=== PATIENT | male | born 1960 | race Caucasian/White ===

== ENCOUNTER → 2016-11-26 | Outpatient (CLI) | payer MEDICARE, OTHER ==
[~2016-11-26] MED LIST: /FENT50PA TD; /PANT40TA OR; /SUCR1TA PO; ACET65TA OR; AUGM875T27 PO; COLA100C2 PO; FERR325T PO; FISH1000 PO; LIDO5DIS TD; MAALSUS OR; MIRALEX PO; MS C30TA2 PO; MULT1TAB10 PO; MULTIVIT PO; NEUR100C PO; NEUR800T PO; OXYC10TA12 PO; OXYC20TA2 PO; OXYC30TA72 PO; OXYC30TA84 PO; OXYC5CAP4 PO; OXYCODONE PO; PAIN325T PO; PRIL40CA PO; ROXICODONE; SENN15TA2 OR; SENN15TA2 PO; TIZA2TAB PO; TIZA6CAP3 PO; TYL RE; TYLE325T5 PO; dulcolax OR; dulcolax PR; fergon OR; senekot OR
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
== END ==
LOC: M PAIN 13:00
PROVIDERS: ATTEND Anesthesiology
DX: M79.1 Myalgia (principal); M51.16 Intervertebral disc disorders with radiculopathy, lumbar region; M54.2 Cervicalgia; G60.8 Other hereditary and idiopathic neuropathies; Z87.828 Personal history of other (healed) physical injury and trauma; Z79.891 Long term (current) use of opiate analgesic; Z79.899 Other long term (current) drug therapy

== ENCOUNTER → 2017-01-28 | Outpatient (CLI) | payer MEDICARE, OTHER ==
[2017-01-28 16:49] LABS: ALBUMIN 4.2 GM/DL (3.2-5.2); ALBUMIN/GLOBULIN RATIO 1.35 (1.00-1.93); ALKALINE PHOSPHATASE 81 U/L (45-117); ALT/SGPT 29 U/L (12-78); ANION GAP 7 MEQ/L (8-16); AST/SGOT 28 U/L (15-37); BILIRUBIN,TOTAL 0.7 MG/DL (0.2-1.0); BLOOD UREA NITROGEN 17 MG/DL (7-18); CARBON DIOXIDE LEVEL 31 MEQ/L (21-32); CHLORIDE LEVEL 101 MEQ/L (98-107); CHOLESTEROL LEVEL 208 MG/DL (<200); CREATININE FOR GFR 0.87 MG/DL (0.70-1.30); FERRITIN 445 NG/ML (26-388); GLOMERULAR FILTRATION RATE > 60.0 (>56); GLUCOSE, FASTING 92 MG/DL (70-105); PERCENT SATURATION 36.7 % (19.7-37.4); POTASSIUM SERUM 4.6 MEQ/L (3.5-5.1); SODIUM LEVEL 139 MEQ/L (136-145); TOTAL IRON BINDING CAPACITY 343 UG/DL (250-450); TOTAL PROTEIN 7.3 GM/DL (6.4-8.2); TRIGLYCERIDES LEVEL 403 MG/DL (<150); URIC ACID 5.9 MG/DL (3.5-7.2)
[2017-01-28 16:56] LABS: MEAN CORPUSCULAR HEMOGLOBIN 31.9 pg (27.0-33.0); MEAN CORPUSCULAR HGB CONC 34.8 g/dl (32.0-36.5); MEAN CORPUSCULAR VOLUME 91.8 fl (80.0-96.0); RED CELL DISTRIBUTION WIDTH 12.3 % (11.5-14.5); WHITE BLOOD COUNT 5.7 K/mm3 (4.0-10.0)
== END ==
LOC: M WUC 14:08
PROVIDERS: ATTEND Family Medicine
DX: D50.8 Other iron deficiency anemias (principal); E78.2 Mixed hyperlipidemia; Z12.5 Encounter for screening for malignant neoplasm of prostate
CPT/HCPCS: 36415; 80053; 80061; 82728; 83550; 84550; 85027; G0103

== ENCOUNTER → 2017-06-10 | Outpatient (REF) ==
[~2017-06-10] MED LIST changes: -AUGM875T27 PO; +AUGM875T28 PO
--- NOTE | 2017-06-10 15:08 | REP ---
Lumbar spine three views: Comparison 05/18/2009. There is thoracic scoliosis convex right, possibly positional, not present previously. There is grade II compression deformities of the L2 vertebral body as an interval change. There is disc space narrowing and degenerative disc disease at every lumbar level. There are small anterior osteophytes at every lumbar level. The pedicles, facets and sacroiliac articulations are unremarkable. Impression: Scoliosis. Multilevel degenerative disc disease. Interim grade II compression deformity of the L2 vertebral body Signed by Rodolfo Bustillos MD 06/10/2017 02:59 P
== END ==
LOC: M SMT 13:27
PROVIDERS: ATTEND Internal Medicine
DX: Z02.9 Encounter for administrative examinations, unspecified (principal)

== ENCOUNTER → 2017-06-10 | Outpatient (REF) | LOC: M SMT 13:26 | PROVIDERS: ATTEND Internal Medicine | DX: Z53.9 Procedure and treatment not carried out, unspecified reason (principal) ==

== ENCOUNTER → 2017-10-27 | Outpatient (REF) | payer MEDICARE, OTHER ==
[2017-10-27 19:12] LABS: BASO % 0.4 % (0.0-1.0); EOS # 0.1 10^3/uL (0.0-0.50); EOS % 1.2 % (0.0-3.0); HEMATOCRIT 41.7 % (42.0-52.0); HEMOGLOBIN 14.2 g/dl (14.0-18.0); IMMATURE GRANULOCYTE % 0.4 % (0-0); LYMPH # 1.5 10^3/uL (1.5-4.5); LYMPH % 28.6 % (24.0-44.0); MEAN CORPUSCULAR HEMOGLOBIN 31.1 pg (27.0-33.0); MEAN CORPUSCULAR HGB CONC 34.1 g/dl (32.0-36.5); MEAN CORPUSCULAR VOLUME 91.4 fl (80.0-96.0); MONO # 0.3 10^3/uL (0.0-0.8); NEUTROPHILS # 3.3 10^3/uL (1.8-7.7); NEUTROPHILS % 63.4 % (36.0-66.0); PLATELET COUNT, AUTOMATED 223 10^3/uL (150-450); RED BLOOD COUNT 4.56 10^6/uL (4.30-6.10); RED CELL DISTRIBUTION WIDTH 12.4 % (11.5-14.5); WHITE BLOOD COUNT 5.2 10^3/uL (4.0-10.0)
[2017-10-27 19:22] LABS: APPEARANCE, URINE CLEAR (CLEAR); BACTERIA, URINE AUTO NEGATIVE (NEGATIVE); BILIRUBIN, URINE AUTO NEGATIVE (NEGATIVE); BLOOD, URINE BLOOD NEGATIVE (NEGATIVE); COLOR, URINE YELLOW (YELLOW); GLUCOSE, URINE (UA) AUTO NEGATIVE (NEGATIVE); KETONE, URINE AUTO NEGATIVE (NEGATIVE); LEUKOCYTE ESTERASE, URINE AUTO NEGATIVE (NEGATIVE); MUCUS, URINE SMALL (NEGATIVE); NITRITE, URINE AUTO NEGATIVE (NEGATIVE); PROTEIN, URINE AUTO NEGATIVE (NEGATIVE); RBC, URINE AUTO 0 /HPF (0-3); SPECIFIC GRAVITY URINE AUTO 1.024 (1.002-1.035); SQUAMOUS EPITHELIAL CELL UR AU 0 /HPF (0-6); UROBILINOGEN, URINE AUTO 0.2 mg/dL (0.0-2.0); WBC, URINE AUTO 0 /HPF (0-3)
[2017-10-27 20:05] LABS: ALBUMIN 4.4 GM/DL (3.2-5.2); ALBUMIN/GLOBULIN RATIO 1.38 (1.00-1.93); ALKALINE PHOSPHATASE 84 U/L (45-117); ALT/SGPT 30 U/L (12-78); AMYLASE 36 U/L (25-115); ANION GAP 6 MEQ/L (8-16); AST/SGOT 35 U/L (7-37); BILIRUBIN,TOTAL 0.5 MG/DL (0.2-1.0); BLOOD UREA NITROGEN 12 MG/DL (7-18); CALCIUM LEVEL 8.9 MG/DL (8.5-10.1); CARBON DIOXIDE LEVEL 31 MEQ/L (21-32); CHLORIDE LEVEL 104 MEQ/L (98-107); GLOMERULAR FILTRATION RATE > 60.0 (>56); GLUCOSE, FASTING 101 MG/DL (70-105); LIPASE 155 U/L (73-393); POTASSIUM SERUM 4.2 MEQ/L (3.5-5.1); SODIUM LEVEL 141 MEQ/L (136-145); TOTAL PROTEIN 7.6 GM/DL (6.4-8.2)
== END ==
LOC: M SFHCADAM 15:48
DX: R11.0 Nausea (principal); R10.826 Epigastric rebound abdominal tenderness
CPT/HCPCS: 82150

== ENCOUNTER → 2019-01-03 | Outpatient (CLI) | payer MEDICARE, BC, OTHER ==
[~2019-01-03] MED LIST changes: +TIZA6CAP PO; -TIZA6CAP3 PO
--- NOTE | 2019-01-03 18:50 | REP ---
RIGHT HAND, FOUR VIEWS: HISTORY: Pain. There is a nondisplaced fracture of the head of the 5th metacarpal. There is no dislocation. The joint spaces are normal in appearance. IMPRESSION: Nondisplaced fracture of the 5th metacarpal. Electronically Signed by Francisco Brennan MD 01/03/2019 06:51 P
== END ==
LOC: M WUC 17:16
PROVIDERS: ATTEND Physician Assistant
DX: S62.398A Other fracture of other metacarpal bone, initial encounter for closed fracture (principal); Y93.9 Activity, unspecified; Y99.9 Unspecified external cause status; Y92.9 Unspecified place or not applicable; X58.XXXA Exposure to other specified factors, initial encounter

== ENCOUNTER → 2019-02-24 | Outpatient (REF) | payer MEDICARE, OTHER ==
[~2019-02-24] MED LIST changes: -/FENT50PA TD; -/PANT40TA OR; -/SUCR1TA PO; +FENT1DIS15 TD; +PROT1TAB2 OR; +SUCR1TAB56 PO
[2019-02-24 19:03] LABS: HEMATOCRIT 42.1 % (42.0-52.0); HEMOGLOBIN 14.3 g/dl (13.5-17.5); MEAN CORPUSCULAR HEMOGLOBIN 32.4 pg (27.0-33.0); MEAN CORPUSCULAR VOLUME 95.5 fl (80.0-96.0); PLATELET COUNT, AUTOMATED 175 10^3/uL (150-450); RED BLOOD COUNT 4.41 10^6/uL (4.30-6.10); WHITE BLOOD COUNT 4.1 10^3/uL (4.0-10.0)
[2019-02-24 19:13] LABS: ALT/SGPT 36 U/L (12-78); BLOOD UREA NITROGEN 9 MG/DL (7-18); CALCIUM LEVEL 9.1 MG/DL (8.5-10.1); CARBON DIOXIDE LEVEL 29 MEQ/L (21-32); CHLORIDE LEVEL 102 MEQ/L (98-107); CHOLESTEROL LEVEL 211 MG/DL (<200); CHOLESTEROL RISK RATIO 3.102 (<5); CREATININE FOR GFR 0.97 MG/DL (0.70-1.30); FERRITIN 441 NG/ML (26-388); GLOMERULAR FILTRATION RATE > 60.0 (>56); GLUCOSE, FASTING 95 MG/DL (70-100); HDL CHOLESTEROL 68 MG/DL (>40); IRON (FE) 203 UG/DL (65-175); LDL CHOLESTEROL 93 MG/DL (<100); NON-HDL-C 143 MG/DL; PERCENT SATURATION 57.8 % (19.7-50.0); POTASSIUM SERUM 4.2 MEQ/L (3.5-5.1); SODIUM LEVEL 137 MEQ/L (136-145); TOTAL IRON BINDING CAPACITY 351 UG/DL (250-450); TOTAL PROTEIN 7.8 GM/DL (6.4-8.2); TRIGLYCERIDES LEVEL 248 MG/DL (<150); URIC ACID 5.2 MG/DL (3.5-7.2)
== END ==
LOC: M SFHCADAM 14:35
PROVIDERS: ATTEND Family Medicine
DX: E78.2 Mixed hyperlipidemia (principal); G90.529 Complex regional pain syndrome I of unspecified lower limb; M1A.0710 Idiopathic chronic gout, right ankle and foot, without tophus (tophi); D50.8 Other iron deficiency anemias; Z12.5 Encounter for screening for malignant neoplasm of prostate
CPT/HCPCS: 80053; 80061; 82728; 83550; 84550; 85027; 85046; G0103; G0463

== ENCOUNTER → 2019-03-03 | Outpatient (CLI) | payer MEDICARE, BC, OTHER ==
--- NOTE | 2019-03-03 11:15 | REP ---
NOMINAL AORTIC SONOGRAPHY: HISTORY: Aortic atherosclerosis. FINDINGS: A normal caliber abdominal aorta is noted. Aortic dimensions are 1.9 x 1.9 cm proximally at the level of the diaphragmatic hiatus. AP by transverse dimensions of the distal aorta are 1.9 x 1.8 cm. The right and left common iliac arteries measure 0.8 cm in AP dimension bilaterally. No periaortic disease is seen. IMPRESSION: Normal abdominal aortic sonography. Electronically Signed by Payam Joshua MD 03/03/2019 01:07 P
== END ==
LOC: M RAD 07:28
PROVIDERS: ATTEND Family Medicine
DX: Z86.79 Personal history of other diseases of the circulatory system (principal)

== ENCOUNTER → 2019-05-23 | Outpatient (REF) | payer MEDICARE, OTHER ==
[2019-05-23 17:59] LABS: BASO % 0.5 % (0.0-1.0); EOS # 0.1 10^3/uL (0.0-0.50); EOS % 2.2 % (0.0-3.0); HEMATOCRIT 40.3 % (42.0-52.0); HEMOGLOBIN 13.9 g/dl (13.5-17.5); LYMPH # 1.2 10^3/uL (1.5-4.5); LYMPH % 32.1 % (24.0-44.0); MEAN CORPUSCULAR HEMOGLOBIN 33.3 pg (27.0-33.0); MEAN CORPUSCULAR HGB CONC 34.5 g/dl (32.0-36.5); MEAN CORPUSCULAR VOLUME 96.4 fl (80.0-96.0); MONO # 0.3 10^3/uL (0.0-0.8); MONO % 7.3 % (0.0-5.0); NEUTROPHILS # 2.1 10^3/uL (1.8-7.7); NEUTROPHILS % 57.6 % (36.0-66.0); PLATELET COUNT, AUTOMATED 178 10^3/uL (150-450); RED BLOOD COUNT 4.18 10^6/uL (4.30-6.10); WHITE BLOOD COUNT 3.7 10^3/uL (4.0-10.0)
[2019-05-23 18:00] LABS: C REACTIVE PROTEIN QUANTITATIV 0.3 MG/DL (0.00-0.30); URIC ACID 5.2 MG/DL (3.5-7.2)
[2019-05-23 18:34] LABS: ERYTHROCYTE SEDIMENTATION RATE 9 mm/hr (0-20)
[2019-05-26 00:06] LABS: ANTI DOUBLE STRAND-DNA AB 1 IU/mL (0-9); ANTINUCLEAR ANTIBODIES DIRECT Positive (Negative); Lyme Disease IgG/IgM Antibodie <0.91 ISR (0.00-0.90); Lyme Disease IgM Ab Quantitati <0.80 index (0.00-0.79); RNP ANTIBODIES 1.8 AI (0.0-0.9); SJOGREN'S ANTI SS-A <0.2 AI (0.0-0.9); SJOGREN'S ANTI SS-B <0.2 AI (0.0-0.9); SMITH ANTIBODIES <0.2 AI (0.0-0.9)
== END ==
LOC: M LABDRAW1 17:06
PROVIDERS: ATTEND Physician Assistant Surgical
DX: S62.366 Nondisplaced fracture of neck of fifth metacarpal bone, right hand (principal)

== ENCOUNTER → 2020-05-10 | Outpatient (REF) | payer MEDICARE, OTHER ==
[~2020-05-10] MED LIST changes: +OXYC30TA PO; -OXYC30TA84 PO
[2020-05-10 19:41] LABS: HEMOGLOBIN 13.5 g/dl (13.5-17.5); MEAN CORPUSCULAR HEMOGLOBIN 32.1 pg (27.0-33.0); MEAN CORPUSCULAR HGB CONC 33.8 g/dl (32.0-36.5); MEAN CORPUSCULAR VOLUME 95.2 fl (80.0-96.0); PLATELET COUNT, AUTOMATED 179 10^3/uL (150-450); WHITE BLOOD COUNT 4.3 10^3/uL (4.0-10.0)
[2020-05-10 20:01] LABS: ALBUMIN 3.8 GM/DL (3.2-5.2); ALT/SGPT 23 U/L (12-78); BILIRUBIN,TOTAL 0.4 MG/DL (0.2-1.0); BLOOD UREA NITROGEN 10 MG/DL (7-18); CALCIUM LEVEL 8.6 MG/DL (8.5-10.1); CARBON DIOXIDE LEVEL 29 MEQ/L (21-32); CHLORIDE LEVEL 103 MEQ/L (98-107); CHOLESTEROL LEVEL 189 MG/DL (<200); CHOLESTEROL RISK RATIO 3.258 (<5); CREATININE FOR GFR 0.78 MG/DL (0.70-1.30); FERRITIN 254 NG/ML (26-388); GLOMERULAR FILTRATION RATE > 60.0 (>56); GLUCOSE, FASTING 87 MG/DL (70-100); HDL CHOLESTEROL 58 MG/DL (>40); IRON (FE) 181 UG/DL (65-175); LDL CHOLESTEROL 65 MG/DL (<100); LIPASE 94 U/L (73-393); NON-HDL-C 131 MG/DL; PERCENT SATURATION 56.4 % (19.7-50.0); POTASSIUM SERUM 4.5 MEQ/L (3.5-5.1); SODIUM LEVEL 140 MEQ/L (136-145); TOTAL IRON BINDING CAPACITY 321 UG/DL (250-450); TOTAL PROTEIN 7.4 GM/DL (6.4-8.2); TRIGLYCERIDES LEVEL 328 MG/DL (<150)
== END ==
LOC: M SFHCADAM 15:33
PROVIDERS: ATTEND Family Medicine
DX: R10.32 Left lower quadrant pain (principal); E83.10 Disorder of iron metabolism, unspecified; E78.2 Mixed hyperlipidemia; Z12.5 Encounter for screening for malignant neoplasm of prostate
CPT/HCPCS: 80053; 80061; 81256; 82728; 83550; 83690; 85027; 85046; G0103

== ENCOUNTER → 2020-06-08 | Outpatient (CLI) | payer MEDICARE, BC, OTHER ==
--- NOTE | 2020-07-20 10:16 | REP ---
CT ABDOMEN AND PELVIS WITHOUT IV OR ORAL CONTRAST HISTORY: Left lower quadrant abdominal pain. COMPARISON: CT study from 01/21/2015. FINDINGS: Digital preliminary anesthesiology physician radiograph shows a normal bowel gas pattern. There are osteoarthritic changes in the hips bilaterally and there is old posttraumatic deformity apparent in the right ischium and superior pubic ramus. These findings are unchanged from the [address] images, there is some linear fibrosis in the left lower lobe. The lung bases are otherwise essentially clear. There is no evidence of pleural effusion or upper abdominal ascites. No focal hepatic or splenic lesion is seen. There is a small accessory splenule near the pancreatic tail. No pancreatic abnormalities observed. The gallbladder is unremarkable. Normal adrenal glands are visible bilaterally. There is a cyst in the lower pole of the left kidney measuring 3.1 cm in greatest diameter. No retroperitoneal mass or adenopathy is observed. There is a subtle increase in the density of the small bowel mesenteric fat without evidence of adenopathy consistent with mesenteric panniculitis. This is essentially unchanged from the prior study. The appendix is surgically absent. No evidence of large or small bowel obstruction. Vascular calcification is observed. Seminal vesicles, prostate, and urinary bladder are unremarkable. No abdominal wall defect is seen. IMPRESSION: No acute abnormality noted. Edema versus fibrosis in the small bowel mesentery, question mesenteric panniculitis pattern, essentially unchanged from 2015. Small cyst lower pole left kidney 3.1 cm. No acute abnormality. MTDD
== END ==
LOC: M RAD 16:12
PROVIDERS: ATTEND Family Medicine
DX: N28.1 Cyst of kidney, acquired (principal); R10.32 Left lower quadrant pain

== ENCOUNTER → 2021-08-15 | Outpatient (REF) | payer MEDICARE, OTHER ==
[~2021-08-15] MED LIST changes: +ALLO100T; +FAMO40TA3; +GABA-1171; +LASI20TA3 PO; +OMEP-221; +VENTAER INH
[2021-08-15 16:59] LABS: HEMATOCRIT 47.7 % (42.0-52.0); HEMOGLOBIN 16.3 g/dl (13.5-17.5); MEAN CORPUSCULAR HEMOGLOBIN 33.7 pg (27.0-33.0); MEAN CORPUSCULAR HGB CONC 34.2 g/dl (32.0-36.5); MEAN CORPUSCULAR VOLUME 98.6 fl (80.0-96.0); PLATELET COUNT, AUTOMATED 139 10^3/uL (150-450); RED BLOOD COUNT 4.84 10^6/uL (4.30-6.10); WHITE BLOOD COUNT 4.2 10^3/uL (4.0-10.0)
[2021-08-15 17:45] LABS: ALBUMIN 3.7 GM/DL (3.2-5.2); ALT/SGPT 48 U/L (12-78); BILIRUBIN,TOTAL 1.2 MG/DL (0.2-1.0); BLOOD UREA NITROGEN 9 MG/DL (7-18); CALCIUM LEVEL 9.1 MG/DL (8.8-10.2); CARBON DIOXIDE LEVEL 32 MEQ/L (21-32); CHLORIDE LEVEL 105 MEQ/L (98-107); CHOLESTEROL LEVEL 174 MG/DL (<200); CHOLESTEROL RISK RATIO 2.416 (<5); CREATININE FOR GFR 0.76 MG/DL (0.70-1.30); FREE T4 0.85 NG/DL (0.76-1.46); GLOMERULAR FILTRATION RATE > 60.0 (>49); GLUCOSE, FASTING 114 MG/DL (70-100); HDL CHOLESTEROL 72 MG/DL (>40); LDL CHOLESTEROL 87 MG/DL (<100); NON-HDL-C 102 MG/DL; POTASSIUM SERUM 4.6 MEQ/L (3.5-5.1); SODIUM LEVEL 139 MEQ/L (136-145); TOTAL PROTEIN 7.1 GM/DL (6.4-8.2); TRIGLYCERIDES LEVEL 76 MG/DL (<150)
[2021-08-15 19:47] LABS: HEMOGLOBIN A1c 4.7 %
== END ==
LOC: M SFHCADAM 13:28
PROVIDERS: ATTEND Family Medicine
DX: K43.9 Ventral hernia without obstruction or gangrene (principal); G90.529 Complex regional pain syndrome I of unspecified lower limb; E78.2 Mixed hyperlipidemia; E74.9 Disorder of carbohydrate metabolism, unspecified; I70.0 Atherosclerosis of aorta; Z12.5 Encounter for screening for malignant neoplasm of prostate; Z79.899 Other long term (current) drug therapy; Z23 Encounter for immunization
CPT/HCPCS: 80053; 80061; 83036; 84439; 84443; 85027; 90682; G0008; G0103; G0463

== ENCOUNTER → 2022-02-12 | Outpatient (CLI) | payer MEDICARE, OTHER ==
[~2022-02-12] MED LIST changes: -OMEP-221; +OMEP40CA5
[2022-02-12 16:32] LABS: HEMATOCRIT 48.8 % (42.0-52.0); HEMOGLOBIN 16.9 g/dl (13.5-17.5); MEAN CORPUSCULAR HEMOGLOBIN 33.9 pg (27.0-33.0); MEAN CORPUSCULAR HGB CONC 34.6 g/dl (32.0-36.5); PLATELET COUNT, AUTOMATED 127 10^3/uL (150-450); RED BLOOD COUNT 4.98 10^6/uL (4.30-6.10); WHITE BLOOD COUNT 4.5 10^3/uL (4.0-10.0)
[2022-02-12 17:12] LABS: ALT/SGPT 50 U/L (12-78); BILIRUBIN,TOTAL 0.8 MG/DL (0.2-1.0); BLOOD UREA NITROGEN 10 MG/DL (7-18); CALCIUM LEVEL 9.2 MG/DL (8.8-10.2); CARBON DIOXIDE LEVEL 35 MEQ/L (21-32); CHLORIDE LEVEL 99 MEQ/L (98-107); CREATININE FOR GFR 0.82 MG/DL (0.70-1.30); FERRITIN 128 NG/ML (26-388); FOLATE 8.2 NG/ML (>5.4); FREE T4 0.87 NG/DL (0.76-1.46); GLOMERULAR FILTRATION RATE > 60.0 (>49); GLUCOSE, FASTING 125 MG/DL (70-100); IRON (FE) 87 UG/DL (65-175); MAGNESIUM LEVEL 2.5 MG/DL (1.8-2.4); NT-PRO BNP 22 PG/ML (<125); PERCENT SATURATION 20.6 % (19.7-50.0); POTASSIUM SERUM 3.9 MEQ/L (3.5-5.1); SODIUM LEVEL 136 MEQ/L (136-145); TOTAL IRON BINDING CAPACITY 423 UG/DL (250-450); TOTAL PROTEIN 7.9 GM/DL (6.4-8.2)
[2022-02-15 00:11] LABS: CYCLIC CITRULLINATED PEPTIDE 3 units (0-19); TRANSFERRIN 335 mg/dL (177-329)
[2022-02-18 18:04] LABS: VITAMIN B12 LEVEL 417 PG/ML (247-911)
== END ==
LOC: M RAD 15:48
PROVIDERS: ATTEND Family Medicine
DX: N28.1 Cyst of kidney, acquired (principal); S32.028A Other fracture of second lumbar vertebra, initial encounter for closed fracture; G57.93 Unspecified mononeuropathy of bilateral lower limbs; R76.8 Other specified abnormal immunological findings in serum; I27.20 Pulmonary hypertension, unspecified; R18.8 Other ascites; R14.0 Abdominal distension (gaseous); Z14.8 Genetic carrier of other disease; X58.XXXA Exposure to other specified factors, initial encounter; Y92.9 Unspecified place or not applicable; Y99.9 Unspecified external cause status

== ENCOUNTER → 2022-02-12 | Outpatient (REF) | payer MEDICARE, OTHER | LOC: M SFHCADAM 14:57 | PROVIDERS: ATTEND Family Medicine | DX: I27.20 Pulmonary hypertension, unspecified (principal); G57.93 Unspecified mononeuropathy of bilateral lower limbs; R76.8 Other specified abnormal immunological findings in serum; R18.8 Other ascites; Z14.8 Genetic carrier of other disease ==

== ENCOUNTER → 2022-04-16 | Outpatient (CLI) | payer MEDICARE, BC, OTHER ==
[~2022-04-16] MED LIST changes: +ISOVUE-370 76% 100ML VIAL As Ordered ONE
== END ==
LOC: M RAD 15:13
PROVIDERS: ATTEND Internal Medicine Pulmonary Disease
DX: R06.00 Dyspnea, unspecified (principal)
CPT/HCPCS: 71275; Q9967

== ENCOUNTER → 2022-05-01 | Outpatient (CLI) | payer MEDICARE, BC, OTHER ==
[~2022-05-01] MED LIST changes: -ISOVUE-370 76% 100ML VIAL As Ordered ONE
== END ==
LOC: M SLEEP HO 13:33
PROVIDERS: ATTEND Internal Medicine Pulmonary Disease
DX: R06.83 Snoring (principal); G47.9 Sleep disorder, unspecified

== ENCOUNTER → 2022-05-08 | Outpatient (CLI) | payer MEDICARE, BC, OTHER ==
[2022-05-08 14:05] LABS: BASO % 0.4 % (0.0-1.0); EOS % 0.6 % (0.0-3.0); HEMATOCRIT 46.6 % (42.0-52.0); HEMOGLOBIN 16.3 g/dl (13.5-17.5); LYMPH # 0.9 10^3/uL (1.5-5.0); LYMPH % 17.8 % (24.0-44.0); MEAN CORPUSCULAR HEMOGLOBIN 32.9 pg (27.0-33.0); MEAN CORPUSCULAR VOLUME 94.1 fl (80.0-96.0); MONO # 0.6 10^3/uL (0.0-0.8); MONO % 11.6 % (2.0-8.0); NEUTROPHILS # 3.4 10^3/uL (1.5-8.5); NEUTROPHILS % 69.4 % (36.0-66.0); PLATELET COUNT, AUTOMATED 149 10^3/uL (150-450); RED BLOOD COUNT 4.95 10^6/uL (4.30-6.10); WHITE BLOOD COUNT 4.9 10^3/uL (4.0-10.0)
[2022-05-08 14:28] LABS: ERYTHROCYTE SEDIMENTATION RATE 6 mm/hr (0-20)
[2022-05-08 14:31] LABS: ALBUMIN 3.9 GM/DL (3.2-5.2); ALT/SGPT 36 U/L (12-78); BILIRUBIN,TOTAL 1.8 MG/DL (0.2-1.0); BLOOD UREA NITROGEN 13 MG/DL (7-18); CALCIUM LEVEL 9.4 MG/DL (8.8-10.2); CARBON DIOXIDE LEVEL 30 MEQ/L (21-32); CHLORIDE LEVEL 100 MEQ/L (98-107); CREATININE FOR GFR 0.88 MG/DL (0.70-1.30); GLOMERULAR FILTRATION RATE > 60.0 (>49); GLUCOSE, FASTING 105 MG/DL (70-100); LIPASE 93 U/L (73-393); POTASSIUM SERUM 4.4 MEQ/L (3.5-5.1); SODIUM LEVEL 135 MEQ/L (136-145); TOTAL PROTEIN 7.8 GM/DL (6.4-8.2)
== END ==
LOC: M PLALAB 12:47
PROVIDERS: ATTEND Physician Assistant
DX: R61 Generalized hyperhidrosis (principal); R10.9 Unspecified abdominal pain; R19.7 Diarrhea, unspecified; R53.1 Weakness

== ENCOUNTER → 2022-07-07 | Outpatient (CLI) | payer MEDICARE, BC, OTHER ==
[2022-07-07 19:56] LABS: BASO % 0.6 % (0.0-1.0); EOS # 0.1 10^3/uL (0.0-0.5); EOS % 2.8 % (0.0-3.0); HEMATOCRIT 35.8 % (42.0-52.0); HEMOGLOBIN 12.1 g/dl (13.5-17.5); LYMPH # 1.1 10^3/uL (1.5-5.0); LYMPH % 30.5 % (24.0-44.0); MEAN CORPUSCULAR HEMOGLOBIN 34.3 pg (27.0-33.0); MEAN CORPUSCULAR HGB CONC 33.8 g/dl (32.0-36.5); MEAN CORPUSCULAR VOLUME 101.4 fl (80.0-96.0); MONO # 0.6 10^3/uL (0.0-0.8); MONO % 15.2 % (2.0-8.0); NEUTROPHILS # 1.8 10^3/uL (1.5-8.5); NEUTROPHILS % 50.6 % (36.0-66.0); PLATELET COUNT, AUTOMATED 179 10^3/uL (150-450); RED BLOOD COUNT 3.53 10^6/uL (4.30-6.10); WHITE BLOOD COUNT 3.6 10^3/uL (4.0-10.0)
[2022-07-07 20:56] LABS: ERYTHROCYTE SEDIMENTATION RATE 28 mm/hr (0-20)
== END ==
LOC: M WUC 14:51
PROVIDERS: ATTEND Family Medicine
DX: M1A.0710 Idiopathic chronic gout, right ankle and foot, without tophus (tophi) (principal)

== ENCOUNTER → 2022-11-07 | Outpatient (CLI) | payer MEDICARE, BC, OTHER ==
[2022-11-07 10:25] LABS: HEMATOCRIT 40.5 % (42.0-52.0); HEMOGLOBIN 13.5 g/dl (13.5-17.5); MEAN CORPUSCULAR HEMOGLOBIN 34.4 pg (27.0-33.0); MEAN CORPUSCULAR HGB CONC 33.3 g/dl (32.0-36.5); MEAN CORPUSCULAR VOLUME 103.3 fl (80.0-96.0); PLATELET COUNT, AUTOMATED 125 10^3/uL (150-450); RED BLOOD COUNT 3.92 10^6/uL (4.30-6.10); WHITE BLOOD COUNT 4.4 10^3/uL (4.0-10.0)
[2022-11-07 10:43] LABS: HEMOGLOBIN A1c 4.4 % (4.0-6.0)
[2022-11-07 10:51] LABS: ALBUMIN 3.3 G/DL (3.2-5.2); ALKALINE PHOSPHATASE 97 U/L (46-116); ALT/SGPT 37 U/L (7.0-40); AST/SGOT 80 U/L (<34); BILIRUBIN,TOTAL 0.6 MG/DL (0.3-1.2); BLOOD UREA NITROGEN 12 MG/DL (9-23); CALCIUM LEVEL 8.6 MG/DL (8.3-10.6); CARBON DIOXIDE LEVEL 29 MMOL/L (20-31); CHLORIDE LEVEL 100 MMOL/L (98-107); CHOLESTEROL LEVEL 145 MG/DL (<200); CHOLESTEROL RISK RATIO 2.77 (<5); CREATININE FOR GFR 0.62 MG/DL (0.70-1.30); GLOMERULAR FILTRATION RATE > 60.0 (>49); GLUCOSE, FASTING 81 MG/DL (74-106); HDL CHOLESTEROL 52.3 MG/DL (>40); IRON (FE) 61 UG/DL (65-175); LDL CHOLESTEROL 74.5 MG/DL (<100); NON-HDL-C 93 MG/DL; PERCENT SATURATION 18.8 % (19.7-50.0); POTASSIUM SERUM 3.7 MMOL/L (3.5-5.1); SODIUM LEVEL 138 MMOL/L (136-145); TOTAL IRON BINDING CAPACITY 325 UG/DL (250-425); TOTAL PROTEIN 7.1 G/DL (5.7-8.2); TRIGLYCERIDES LEVEL 91 MG/DL (<150); VITAMIN B12 LEVEL 405 PG/ML (211-911)
[2022-11-07 10:52] LABS: FERRITIN 131.4 NG/ML (10.5-307.3); FREE T4 0.99 NG/DL (0.89-1.76); THYROID STIMULATING HORMONE 3.605 uIU/ML (0.55-4.78)
[2022-11-08 11:08] LABS: TESTOSTERONE FREE (DIRECT) 1.9 pg/mL (6.6-18.1)
== END ==
LOC: M WUC 08:36
PROVIDERS: ATTEND Family Medicine
DX: R53.83 Other fatigue (principal); D64.9 Anemia, unspecified; E78.2 Mixed hyperlipidemia; Z12.5 Encounter for screening for malignant neoplasm of prostate
CPT/HCPCS: 36415; 80053; 80061; 82607; 82728; 83036; 83550; 84402; 84403; 84439; 84443; 85027; 85046; G0103

== ENCOUNTER → 2023-02-03 | Outpatient (CLI) | payer MEDICARE, BC, OTHER ==
[2023-02-03 16:19] LABS: PLATELET COUNT, AUTOMATED 109 10^3/uL (150-450)
[2023-02-03 16:30] LABS: INR 1.09; PROTHROMBIN TIME 14.3 SECONDS (12.5-14.5)
[2023-02-03 16:31] LABS: PARTIAL THROMBOPLASTIN TIME 26.5 SECONDS (24.8-34.2)
[2023-02-03 16:41] LABS: ALBUMIN 3.5 G/DL (3.2-5.2); ALKALINE PHOSPHATASE 125 U/L (46-116); ALT/SGPT 31 U/L (7.0-40); AST/SGOT 125 U/L (<34); BILIRUBIN,DIRECT 0.5 MG/DL (<0.4); BILIRUBIN,TOTAL 0.9 MG/DL (0.3-1.2); BLOOD UREA NITROGEN 9 MG/DL (9-23); CALCIUM LEVEL 8.3 MG/DL (8.3-10.6); CARBON DIOXIDE LEVEL 31 MMOL/L (20-31); CHLORIDE LEVEL 102 MMOL/L (98-107); CREATININE FOR GFR 0.58 MG/DL (0.70-1.30); GLOMERULAR FILTRATION RATE > 60.0 (>49); GLUCOSE, FASTING 83 MG/DL (74-106); IRON (FE) 128 UG/DL (65-175); PERCENT SATURATION 43.2 % (19.7-50.0); POTASSIUM SERUM 3.7 MMOL/L (3.5-5.1); SODIUM LEVEL 139 MMOL/L (136-145); TOTAL IRON BINDING CAPACITY 296 UG/DL (250-425); TOTAL PROTEIN 7.1 G/DL (5.7-8.2)
[2023-02-03 17:01] LABS: HEPATITIS B SURFACE ANTIGEN NEGATIVE (NEGATIVE)
== END ==
LOC: M WUC 12:56
PROVIDERS: ATTEND Internal Medicine Gastroenterology
DX: K70.9 Alcoholic liver disease, unspecified (principal); R10.84 Generalized abdominal pain; R14.0 Abdominal distension (gaseous)

== ENCOUNTER → 2023-02-04 | Outpatient (REF) | payer MEDICARE, OTHER | LOC: M SFHCADAM 15:34 | PROVIDERS: ATTEND Family Medicine | DX: E34.9 Endocrine disorder, unspecified (principal); Z79.891 Long term (current) use of opiate analgesic; Z79.899 Other long term (current) drug therapy ==

== ENCOUNTER 2023-03-15 11:00 | Inpatient (IN) | payer MEDICARE, BC, OTHER ==
[~2023-03-15] VITALS: Ht 177.8 cm; Wt 76.9 kg
[~2023-03-15 11:00] MED LIST changes: -ALLO100T; +ALLO100T PO; -FAMO40TA3; +FAMO40TA3 PO; +FURO20TA2 PO; -GABA-1171; +GABA-1171 PO; -OMEP40CA5; +OMEP40CA5 PO; +TEST200I14 IM; +TEST30SO3
[2023-03-15] MEDS ORDERED: fentaNYL 100 MCG/2 ML INJECTION IV ONE (13:15)
[2023-03-15 13:40] LABS: HEMATOCRIT 40.7 % (42.0-52.0); HEMOGLOBIN 13.7 g/dl (13.5-17.5); MEAN CORPUSCULAR HEMOGLOBIN 33.3 pg (27.0-33.0); MEAN CORPUSCULAR HGB CONC 33.7 g/dl (32.0-36.5); MEAN CORPUSCULAR VOLUME 98.8 fl (80.0-96.0); PLATELET COUNT, AUTOMATED 175 10^3/uL (150-450); RED BLOOD COUNT 4.12 10^6/uL (4.30-6.10); WHITE BLOOD COUNT 6.1 10^3/uL (4.0-10.0)
[2023-03-15 14:09] LABS: BLOOD UREA NITROGEN 7 MG/DL (9-23); CALCIUM LEVEL 8.2 MG/DL (8.3-10.6); CARBON DIOXIDE LEVEL 33 MMOL/L (20-31); CHLORIDE LEVEL 103 MMOL/L (98-107); CREATININE FOR GFR 0.88 MG/DL (0.70-1.30); GLOMERULAR FILTRATION RATE > 60.0 (>49); GLUCOSE, FASTING 109 MG/DL (74-106); POTASSIUM SERUM 3.3 MMOL/L (3.5-5.1); SODIUM LEVEL 140 MMOL/L (136-145)
[2023-03-15] MEDS ORDERED: MORPHINE 2 MG/ML 1ML VIAL IV ONE (14:40)
[2023-03-15] MEDS ORDERED: ACETAMINOPHEN TAB 650MG DOSE (2X325MG) PO PRN (17:30)
[2023-03-15] MEDS ORDERED: POTASSIUM CHLORIDE 10MEQ SR TABLET PO ONE (17:30)
[2023-03-15] MEDS ORDERED: ALBUTEROL 90 MCG/ACT 8GM HFA INHALER INH PRN (17:30)
[2023-03-15] MEDS ORDERED: oxyCODONE 5MG TAB PO PRN (17:30)
[2023-03-15] MEDS ORDERED: LORazepam 2 MG TAB PO PRN (17:30)
[2023-03-15] MEDS ORDERED: LORazepam 2 MG/ML 1ML VIAL IV STA (17:47)
[2023-03-15] MEDS ORDERED: HOME MED LIST COMPLETE! XX SCH (17:50)
[2023-03-15] MEDS ORDERED: TEST30SO3 TOP (17:50)
[2023-03-15 18:17] LABS: RSV AMPLIFICATION NEGATIVE (NEGATIVE)
[2023-03-15] MEDS: MORPHINE 4 MG/ML 1ML VIAL IV PRN (19:27)
[2023-03-15] MEDS: GABAPENTIN 100 MG CAP PO SCH (20:28)
[2023-03-15] MEDS: THIAMINE 100 MG TAB PO SCH (20:30)
[2023-03-15] MEDS: FOLIC ACID 1MG TAB PO SCH (20:30)
[2023-03-15] MEDS: NS 1,000 ML IV SCH (20:31)
[2023-03-15] MEDS ORDERED: oxyCODONE 15MG CR TAB PO SCH (21:00)
[2023-03-15 21:30] VITALS: BP 142/80
[2023-03-15 22:00] VITALS: BP 152/78
[2023-03-15] MEDS: oxyCODONE 15MG CR TAB PO SCH (22:40)
[2023-03-15] MEDS: LIDOCAINE 5% (LIDODERM) PATCH TD SCH (22:42)
[2023-03-16] MEDS: MORPHINE 4 MG/ML 1ML VIAL IV PRN (00:54)
[2023-03-16] MEDS: oxyCODONE 5MG TAB PO PRN ×3 (02:49→23:18)
[2023-03-16] MEDS: HYDROMORPHONE HCL 0.5 MG/ 0.5 ML SYRINGE IV PRN ×7 (03:57→22:11)
[2023-03-16 05:16] VITALS: BP 133/71
[2023-03-16 06:09] LABS: HEMATOCRIT 38.2 % (42.0-52.0); HEMOGLOBIN 12.7 g/dl (13.5-17.5); MEAN CORPUSCULAR HEMOGLOBIN 33.3 pg (27.0-33.0); MEAN CORPUSCULAR HGB CONC 33.2 g/dl (32.0-36.5); MEAN CORPUSCULAR VOLUME 100.3 fl (80.0-96.0); PLATELET COUNT, AUTOMATED 163 10^3/uL (150-450); RED BLOOD COUNT 3.81 10^6/uL (4.30-6.10); WHITE BLOOD COUNT 5.7 10^3/uL (4.0-10.0)
[2023-03-16] MEDS: NS 1,000 ML IV SCH (06:33)
[2023-03-16 06:36] VITALS: BP 133/77
[2023-03-16 06:43] LABS: ALBUMIN 2.7 G/DL (3.2-5.2); ALKALINE PHOSPHATASE 154 U/L (46-116); ALT/SGPT 21 U/L (7.0-40); AST/SGOT 41 U/L (<34); BILIRUBIN,TOTAL 1.4 MG/DL (0.3-1.2); BLOOD UREA NITROGEN 9 MG/DL (9-23); CARBON DIOXIDE LEVEL 31 MMOL/L (20-31); CHLORIDE LEVEL 102 MMOL/L (98-107); CREATININE FOR GFR 0.85 MG/DL (0.70-1.30); GLOMERULAR FILTRATION RATE > 60.0 (>49); GLUCOSE, FASTING 82 MG/DL (74-106); MAGNESIUM LEVEL 1.6 MG/DL (1.8-2.4); POTASSIUM SERUM 3.3 MMOL/L (3.5-5.1); SODIUM LEVEL 138 MMOL/L (136-145); TOTAL PROTEIN 6.2 G/DL (5.7-8.2)
[2023-03-16] MEDS ORDERED: OXYC30TA72 PO (07:50)
[2023-03-16] MEDS ORDERED: POTASSIUM CHLORIDE 10MEQ SR TABLET PO ONE (08:00)
[2023-03-16] MEDS ORDERED: MAGNESIUM OXIDE 400MG TAB (MAG-OX) PO ONE (08:00)
[2023-03-16] MEDS: oxyCODONE 15MG CR TAB PO SCH ×2 (09:17→21:05)
[2023-03-16] MEDS: FOLIC ACID 1MG TAB PO SCH (09:17)
[2023-03-16] MEDS: allopurinoL 100 MG TAB PO SCH (09:17)
[2023-03-16] MEDS: THIAMINE 100 MG TAB PO SCH ×2 (09:17→21:04)
[2023-03-16] MEDS: OMEPRAZOLE 20MG CAP PO SCH (09:18)
[2023-03-16] MEDS: GABAPENTIN 100 MG CAP PO SCH ×2 (09:20→21:04)
[2023-03-16] MEDS: MULTIVITAMINS/MINERALS THERAP 1 TAB PO SCH (09:20)
[2023-03-16] MEDS: oxyCODONE 20MG CR TAB PO SCH (12:10)
[2023-03-16 14:00] VITALS: BP 139/75
[2023-03-16 20:48] VITALS: BP 145/81
[2023-03-16] MEDS: LIDOCAINE 5% (LIDODERM) PATCH TD SCH (21:05)
[2023-03-16 22:00] VITALS: BP 145/81
[2023-03-16] MEDS ORDERED: diazePAM 2 MG TAB PO ONE (23:05)
[2023-03-17] MEDS: HYDROMORPHONE HCL 0.5 MG/ 0.5 ML SYRINGE IV PRN ×4 (01:17→11:26)
[2023-03-17] MEDS: oxyCODONE 5MG TAB PO PRN ×3 (01:25→10:09)
[2023-03-17 05:39] VITALS: BP 144/99
[2023-03-17 05:46] LABS: BASO % 0.2 % (0.0-1.0); EOS # 0.1 10^3/uL (0.0-0.5); EOS % 2.6 % (0.0-3.0); HEMATOCRIT 38.1 % (42.0-52.0); HEMOGLOBIN 12.8 g/dl (13.5-17.5); LYMPH # 1.2 10^3/uL (1.5-5.0); LYMPH % 24.3 % (24.0-44.0); MEAN CORPUSCULAR HEMOGLOBIN 33.4 pg (27.0-33.0); MEAN CORPUSCULAR HGB CONC 33.6 g/dl (32.0-36.5); MEAN CORPUSCULAR VOLUME 99.5 fl (80.0-96.0); MONO # 0.5 10^3/uL (0.0-0.8); NEUTROPHILS # 3.2 10^3/uL (1.5-8.5); NEUTROPHILS % 63.5 % (36.0-66.0); PLATELET COUNT, AUTOMATED 176 10^3/uL (150-450); RED BLOOD COUNT 3.83 10^6/uL (4.30-6.10)
[2023-03-17 06:17] LABS: ALBUMIN 2.8 G/DL (3.2-5.2); ALKALINE PHOSPHATASE 146 U/L (46-116); ALT/SGPT 20 U/L (7.0-40); AST/SGOT 47 U/L (<34); BILIRUBIN,TOTAL 1.6 MG/DL (0.3-1.2); BLOOD UREA NITROGEN 7 MG/DL (9-23); CALCIUM LEVEL 8.3 MG/DL (8.3-10.6); CARBON DIOXIDE LEVEL 28 MMOL/L (20-31); CHLORIDE LEVEL 104 MMOL/L (98-107); CREATININE FOR GFR 0.85 MG/DL (0.70-1.30); GLOMERULAR FILTRATION RATE > 60.0 (>49); GLUCOSE, FASTING 81 MG/DL (74-106); MAGNESIUM LEVEL 1.6 MG/DL (1.8-2.4); POTASSIUM SERUM 3.5 MMOL/L (3.5-5.1); SODIUM LEVEL 136 MMOL/L (136-145); TOTAL PROTEIN 6.4 G/DL (5.7-8.2)
[2023-03-17 06:42] VITALS: BP 145/81
[2023-03-17] MEDS: FOLIC ACID 1MG TAB PO SCH (08:19)
[2023-03-17] MEDS: MULTIVITAMINS/MINERALS THERAP 1 TAB PO SCH (08:19)
[2023-03-17] MEDS: GABAPENTIN 100 MG CAP PO SCH (08:19)
[2023-03-17] MEDS: allopurinoL 100 MG TAB PO SCH (08:19)
[2023-03-17] MEDS: OMEPRAZOLE 20MG CAP PO SCH (08:19)
[2023-03-17] MEDS: THIAMINE 100 MG TAB PO SCH (08:19)
[2023-03-17] MEDS: oxyCODONE 15MG CR TAB PO SCH (08:20)
[2023-03-17] MEDS ORDERED: MAG SULF 1GM/100ML (MAG RUN) 1 GM in IV 1 EA IV ONE ×2 (10:05→10:45)
[2023-03-17] MEDS ORDERED: POTASSIUM CHLORIDE 10MEQ SR TABLET PO ONE (10:45)
[2023-03-17] MEDS ORDERED: oxyCODONE 5MG TAB PO PRN (10:50)
[2023-03-17] MEDS ORDERED: GABA-1171 PO (11:35)
[2023-03-17] MEDS: oxyCODONE 20MG CR TAB PO SCH (12:40)
[2023-03-17] MEDS ORDERED: ASPE4PAD TOP (13:01)
[2023-03-17] MEDS ORDERED: MAGN400T2 PO (13:01)
[2023-03-17] MEDS ORDERED: K-TA10TA2 PO (13:01)
[2023-03-17] MEDS ORDERED: NARC1SPR NARES (13:08)
[2023-03-17] MEDS ORDERED: MIRA3350 PO (13:11)
[2023-03-17] MEDS ORDERED: COLA100C5 PO (13:11)
[2023-03-17 14:00] VITALS: BP 132/73
[2023-03-17] MEDS ORDERED: GABAPENTIN 100 MG CAP PO SCH (16:00)
== END 2023-03-17 15:05 | disposition home or self-care (01) | DRG 552 ==
LOC: M ED 11:00 → M ED INP 17:27 → ENRESERV 19:39 → M MS5PR 21:30
PROVIDERS: ADMIT Family Medicine; ATTEND Internal Medicine
DX: M48.061 Spinal stenosis, lumbar region without neurogenic claudication (principal); M87.9 Osteonecrosis, unspecified; S40.012A Contusion of left shoulder, initial encounter; S62.617A Displaced fracture of proximal phalanx of left little finger, initial encounter for closed fracture; M25.552 Pain in left hip; M54.10 Radiculopathy, site unspecified; K21.9 Gastro-esophageal reflux disease without esophagitis; F10.10 Alcohol abuse, uncomplicated; Z79.891 Long term (current) use of opiate analgesic; Z79.899 Other long term (current) drug therapy; Z20.822 Contact with and (suspected) exposure to COVID-19; Z90.49 Acquired absence of other specified parts of digestive tract; W18.2XXA Fall in (into) shower or empty bathtub, initial encounter; Y92.009 Unspecified place in unspecified non-institutional (private) residence as the place of occurrence of the external cause

== ENCOUNTER → 2023-03-24 | Outpatient (CLI) | payer MEDICARE, BC, OTHER ==
[~2023-03-24] MED LIST changes: +ASPE4PAD TOP; +COLA100C5 PO; +GABA-282 PO; +K-TA10TA2 PO; +MAGN400T2 PO; +MIRA3350 PO; +NARC1SPR NARES; +TEST30SO3 TOP
== END ==
LOC: M RAD 08:49
PROVIDERS: ATTEND Internal Medicine Gastroenterology
DX: R11.2 Nausea with vomiting, unspecified (principal); N28.1 Cyst of kidney, acquired; K76.0 Fatty (change of) liver, not elsewhere classified; R16.1 Splenomegaly, not elsewhere classified; K80.20 Calculus of gallbladder without cholecystitis without obstruction

== ENCOUNTER 2023-04-07 08:16 | Day surgery (SDC) | payer MEDICARE, BC, OTHER ==
[~2023-04-07] VITALS: Ht 177.8 cm; Wt 77.9 kg
[~2023-04-07 08:16] MED LIST changes: +NS 1,000 ML IV ONE
[2023-04-07] MEDS ORDERED: propofoL 200 MG/20 ML VIAL As Ordered ONE ×3 (09:16→09:59)
[2023-04-07] MEDS ORDERED: LIDOCAINE 2% 100MG/5ML SDV (FOR ANES.) As Ordered ONE (09:16)
[2023-04-07 10:33] VITALS: TEMP 98.1
[2023-04-07 11:00] VITALS: BP 140/68; O2SAT 100
== END 2023-04-07 11:10 | disposition home or self-care (01) ==
LOC: M OPP 08:16
PROVIDERS: ATTEND Internal Medicine Gastroenterology
DX: Z12.11 Encounter for screening for malignant neoplasm of colon (principal); K63.5 Polyp of colon; K57.30 Diverticulosis of large intestine without perforation or abscess without bleeding; K64.8 Other hemorrhoids; K74.60 Unspecified cirrhosis of liver; K29.70 Gastritis, unspecified, without bleeding; R60.0 Localized edema; K21.9 Gastro-esophageal reflux disease without esophagitis; F41.9 Anxiety disorder, unspecified; G43.909 Migraine, unspecified, not intractable, without status migrainosus; Z79.899 Other long term (current) drug therapy; Z82.49 Family history of ischemic heart disease and other diseases of the circulatory system; Z80.0 Family history of malignant neoplasm of digestive organs

== ENCOUNTER 2023-04-16 09:09 | Emergency (ER) | payer MEDICARE, BC, OTHER ==
[~2023-04-16] VITALS: Ht 170.2 cm; Wt 77.3 kg
[~2023-04-16 09:09] MED LIST changes: -K-TA10TA2 PO; -NS 1,000 ML IV ONE; +POTA-165 PO
[2023-04-16] MEDS ORDERED: NS 1,000 ML IV ONE (09:30)
[2023-04-16 09:32] VITALS: TEMP 97.6
[2023-04-16] MEDS ORDERED: OXAZEPAM 15MG CAP PO ONE (09:35)
[2023-04-16 10:05] LABS: BASO % 0.9 % (0.0-1.0); EOS % 1.2 % (0.0-3.0); HEMOGLOBIN 15.3 g/dl (13.5-17.5); LYMPH # 1.2 10^3/uL (1.5-5.0); LYMPH % 36.2 % (24.0-44.0); MEAN CORPUSCULAR HEMOGLOBIN 32.1 pg (27.0-33.0); MEAN CORPUSCULAR HGB CONC 33.3 g/dl (32.0-36.5); MEAN CORPUSCULAR VOLUME 96.4 fl (80.0-96.0); MONO # 0.2 10^3/uL (0.0-0.8); MONO % 4.4 % (2.0-8.0); NEUTROPHILS # 1.9 10^3/uL (1.5-8.5); PLATELET COUNT, AUTOMATED 191 10^3/uL (150-450); RED BLOOD COUNT 4.77 10^6/uL (4.30-6.10); WHITE BLOOD COUNT 3.4 10^3/uL (4.0-10.0)
[2023-04-16 11:00] LABS: INR 1.17; PROTHROMBIN TIME 15.1 SECONDS (12.5-14.5)
[2023-04-16 11:06] LABS: ETHYL ALCOHOL (ETHANOL) 0.291 % (0.000-0.010)
[2023-04-16 11:13] LABS: ALBUMIN 2.7 G/DL (3.2-5.2); ALKALINE PHOSPHATASE 180 U/L (46-116); ALT/SGPT 29 U/L (7.0-40); AST/SGOT 110 U/L (<34); BILIRUBIN,DIRECT 0.3 MG/DL (<0.4); BILIRUBIN,TOTAL 0.5 MG/DL (0.3-1.2); BLOOD UREA NITROGEN < 5 MG/DL (9-23); CALCIUM LEVEL 8.4 MG/DL (8.3-10.6); CARBON DIOXIDE LEVEL 30 MMOL/L (20-31); CHLORIDE LEVEL 107 MMOL/L (98-107); GLOMERULAR FILTRATION RATE > 60.0 (>49); GLUCOSE, FASTING 104 MG/DL (74-106); SODIUM LEVEL 145 MMOL/L (136-145); THYROID STIMULATING HORMONE 0.486 uIU/ML (0.55-4.78); TOTAL PROTEIN 6.5 G/DL (5.7-8.2)
[2023-04-16] MEDS ORDERED: LORazepam 2 MG TAB PO PRN (11:30)
[2023-04-16 12:39] VITALS: BP 122/81
[2023-04-16 13:54] VITALS: O2SAT 97
== END 2023-04-16 18:46 | disposition home or self-care (01) ==
LOC: M ED 09:09 → EDBD 09:09 → M ED 18:46
DX: F10.10 Alcohol abuse, uncomplicated (principal); K70.9 Alcoholic liver disease, unspecified; K21.9 Gastro-esophageal reflux disease without esophagitis; Z79.890 Hormone replacement therapy; Z79.899 Other long term (current) drug therapy

== ENCOUNTER → 2023-04-20 | Outpatient (CLI) | payer MEDICARE, BC, OTHER ==
[2023-04-20 12:06] LABS: HEMATOCRIT 42.3 % (42.0-52.0); HEMOGLOBIN 14.2 g/dl (13.5-17.5); MEAN CORPUSCULAR HEMOGLOBIN 32.4 pg (27.0-33.0); MEAN CORPUSCULAR HGB CONC 33.6 g/dl (32.0-36.5); MEAN CORPUSCULAR VOLUME 96.6 fl (80.0-96.0); PLATELET COUNT, AUTOMATED 107 10^3/uL (150-450); RED BLOOD COUNT 4.38 10^6/uL (4.30-6.10); WHITE BLOOD COUNT 4.5 10^3/uL (4.0-10.0)
[2023-04-20 13:12] LABS: ALBUMIN 2.7 G/DL (3.2-5.2); ALKALINE PHOSPHATASE 193 U/L (46-116); ALT/SGPT 26 U/L (7.0-40); AST/SGOT 54 U/L (<34); BILIRUBIN,TOTAL 2.5 MG/DL (0.3-1.2); BLOOD UREA NITROGEN 8 MG/DL (9-23); CALCIUM LEVEL 7.8 MG/DL (8.3-10.6); CARBON DIOXIDE LEVEL 31 MMOL/L (20-31); CHLORIDE LEVEL 102 MMOL/L (98-107); CREATININE FOR GFR 0.73 MG/DL (0.70-1.30); GLOMERULAR FILTRATION RATE > 60.0 (>49); GLUCOSE, FASTING 85 MG/DL (74-106); POTASSIUM SERUM 2.9 MMOL/L (3.5-5.1); SODIUM LEVEL 139 MMOL/L (136-145); TOTAL PROTEIN 6.5 G/DL (5.7-8.2)
[2023-04-24 11:08] LABS: CANNABINOID, URINE Positive (Cutoff=20); CARBOXY THC (GC/MS) 37 ng/mL (Cutoff=10); OPIATES, URINE Negative ng/mL (Cutoff=300); OXYCODONE URINE Positive (.); OXYCODONE, URINE CONFIRM 9264 ng/mL (Cutoff=100); OXYCODONE/OXYMORPH, URINE Positive (Cutoff=100); OXYMORPHONE, URINE Positive (.); OXYMORPHONE, URINE CONFIRM 5565 ng/mL (Cutoff=100)
== END ==
LOC: M RAD 11:05
PROVIDERS: ATTEND Family Medicine
DX: M87.052 Idiopathic aseptic necrosis of left femur (principal); G90.529 Complex regional pain syndrome I of unspecified lower limb; R60.0 Localized edema; S72.052A Unspecified fracture of head of left femur, initial encounter for closed fracture; X58.XXXA Exposure to other specified factors, initial encounter; Y92.9 Unspecified place or not applicable; Y93.9 Activity, unspecified; Y99.9 Unspecified external cause status; Z79.899 Other long term (current) drug therapy

== ENCOUNTER → 2023-04-30 | Outpatient (CLI) | payer MEDICARE, BC, OTHER | LOC: M SOG 13:47 | PROVIDERS: ATTEND Physician Assistant | DX: Z53.9 Procedure and treatment not carried out, unspecified reason (principal); S62.647A Nondisplaced fracture of proximal phalanx of left little finger, initial encounter for closed fracture ==

== ENCOUNTER → 2023-05-04 | Outpatient (CLI) | payer MEDICARE, BC, OTHER ==
[2023-05-04 17:58] LABS: BLOOD UREA NITROGEN 11 MG/DL (9-23); CALCIUM LEVEL 9.9 MG/DL (8.3-10.6); CARBON DIOXIDE LEVEL 31 MMOL/L (20-31); CHLORIDE LEVEL 103 MMOL/L (98-107); GLOMERULAR FILTRATION RATE > 60.0 (>49); GLUCOSE, FASTING 79 MG/DL (74-106); POTASSIUM SERUM 4.7 MMOL/L (3.5-5.1); SODIUM LEVEL 138 MMOL/L (136-145)
== END ==
LOC: M PLALAB 14:25
PROVIDERS: ATTEND Family Medicine
DX: E87.6 Hypokalemia (principal)

== ENCOUNTER → 2023-06-19 | Outpatient (CLI) | payer MEDICARE, BC, OTHER | LOC: M ADAMS 14:52 | PROVIDERS: ATTEND Family Medicine | DX: M70.21 Olecranon bursitis, right elbow (principal) ==

== ENCOUNTER → 2023-07-07 | Outpatient (CLI) | payer MEDICARE, BC, OTHER ==
[~2023-07-07] MED LIST changes: +ISOVUE-300 61% 100ML VIAL As Ordered ONE; +LIDOCAINE 1% MDV 20ML VIAL As Ordered ONE; +TRIAMCINOLONE ACETONIDE SUSP 40MG/ML 1ML VIAL As Ordered ONE
== END ==
LOC: M RAD 14:49
PROVIDERS: ATTEND Orthopaedic Surgery
DX: M16.12 Unilateral primary osteoarthritis, left hip (principal)
CPT/HCPCS: 20610; 77002; J3301; Q9967

== ENCOUNTER 2023-09-27 16:23 | Emergency (ER) | payer BC, MEDICARE, OTHER ==
[~2023-09-27] VITALS: Ht 177.8 cm; Wt 72.6 kg
[~2023-09-27 16:23] MED LIST changes: -ISOVUE-300 61% 100ML VIAL As Ordered ONE; -LIDOCAINE 1% MDV 20ML VIAL As Ordered ONE; -TRIAMCINOLONE ACETONIDE SUSP 40MG/ML 1ML VIAL As Ordered ONE
[2023-09-27 16:25] VITALS: TEMP 98.1
[2023-09-27] MEDS ORDERED: OMEP40CA5 (16:43)
[2023-09-27] MEDS ORDERED: SUCR1TAB56 (16:43)
[2023-09-27] MEDS ORDERED: ONDANSETRON 4MG 2ML VIAL IV ONE (17:20)
[2023-09-27] MEDS ORDERED: NS 1,000 ML IV ONE (17:20)
[2023-09-27 17:34] LABS: BASO % 0.3 % (0.0-1.0); EOS % 0.3 % (0.0-3.0); HEMATOCRIT 34.3 % (42.0-52.0); HEMOGLOBIN 12.2 g/dl (13.5-17.5); LYMPH # 0.7 10^3/uL (1.5-5.0); LYMPH % 19.3 % (24.0-44.0); MEAN CORPUSCULAR HEMOGLOBIN 34.8 pg (27.0-33.0); MEAN CORPUSCULAR HGB CONC 35.6 g/dl (32.0-36.5); MEAN CORPUSCULAR VOLUME 97.7 fl (80.0-96.0); MONO # 0.2 10^3/uL (0.0-0.8); MONO % 6.4 % (2.0-8.0); NEUTROPHILS # 2.8 10^3/uL (1.5-8.5); NEUTROPHILS % 73.7 % (36.0-66.0); RED BLOOD COUNT 3.51 10^6/uL (4.30-6.10); WHITE BLOOD COUNT 3.7 10^3/uL (4.0-10.0)
[2023-09-27 17:46] LABS: INR 1.16; PARTIAL THROMBOPLASTIN TIME 28.9 SECONDS (24.8-34.2); PROTHROMBIN TIME 14.5 SECONDS (12.5-14.5)
[2023-09-27 17:50] LABS: LIPASE 21 U/L (12-53)
[2023-09-27 17:51] LABS: AMYLASE 31 U/L (30-118)
[2023-09-27 17:52] LABS: ALBUMIN 3.5 G/DL (3.2-5.2); ALKALINE PHOSPHATASE 91 U/L (46-116); ALT/SGPT 10 U/L (7.0-40); AST/SGOT 35 U/L (<34); BILIRUBIN,DIRECT 0.7 MG/DL (<0.4); BILIRUBIN,TOTAL 1.6 MG/DL (0.3-1.2); TOTAL PROTEIN 6.7 G/DL (5.7-8.2)
[2023-09-27 17:59] LABS: ETHYL ALCOHOL (ETHANOL) < 0.003 % (0.000-0.010)
[2023-09-27 18:11] LABS: PLATELET COUNT, AUTOMATED 87 10^3/uL (150-450)
[2023-09-27 21:00] VITALS: BP 129/76; O2SAT 98
[2023-09-27] MEDS ORDERED: REGL10TA6 PO (21:16)
[2023-09-27] MEDS ORDERED: ONDA4TAB6 PO (21:16)
== END 2023-09-27 21:45 | disposition home or self-care (01) ==
LOC: M ED 16:23
DX: K52.9 Noninfective gastroenteritis and colitis, unspecified (principal); D69.59 Other secondary thrombocytopenia; G47.33 Obstructive sleep apnea (adult) (pediatric); E78.5 Hyperlipidemia, unspecified; K21.9 Gastro-esophageal reflux disease without esophagitis; F10.10 Alcohol abuse, uncomplicated; Z79.52 Long term (current) use of systemic steroids; Z79.891 Long term (current) use of opiate analgesic; Z79.83 Long term (current) use of bisphosphonates; Z79.899 Other long term (current) drug therapy
CPT/HCPCS: 80047; 80076; 80503; 81001; 82077; 82150; 83605; 83690; 85025; 85049; 85055; 85610; 85730; 87486; 87581; 87633; 87798; 93041; 96361; 96374; 99284; J2405

== ENCOUNTER → 2023-11-05 | Outpatient (REF) | payer MEDICARE, OTHER ==
[~2023-11-05] MED LIST changes: +OMEP40CA5; +ONDA4TAB6 PO; +REGL10TA6 PO; +SUCR1TAB56
[2023-11-05 16:42] LABS: ALKALINE PHOSPHATASE 123 U/L (46-116); ALT/SGPT 15 U/L (7.0-40); AST/SGOT 40 U/L (<34); BILIRUBIN,TOTAL 0.7 MG/DL (0.3-1.2); BLOOD UREA NITROGEN 11 MG/DL (9-23); CARBON DIOXIDE LEVEL 31 MMOL/L (20-31); CHLORIDE LEVEL 104 MMOL/L (98-107); CREATININE FOR GFR 0.58 MG/DL (0.70-1.30); GLOMERULAR FILTRATION RATE > 60.0 (>49); GLUCOSE, FASTING 100 MG/DL (74-106); MAGNESIUM LEVEL 1.9 MG/DL (1.8-2.4); POTASSIUM SERUM 3.8 MMOL/L (3.5-5.1); SODIUM LEVEL 139 MMOL/L (136-145); TOTAL PROTEIN 6.4 G/DL (5.7-8.2)
== END ==
LOC: M SFHCADAM 15:12
PROVIDERS: ATTEND Family Medicine
DX: E87.6 Hypokalemia (principal); E83.42 Hypomagnesemia

== ENCOUNTER 2023-11-21 00:19 | Inpatient (IN) | payer MEDICARE, BC, OTHER ==
[~2023-11-21] VITALS: Ht 177.8 cm; Wt 69.4 kg
[~2023-11-21 00:19] MED LIST changes: -OMEP40CA5; -SUCR1TAB56
[2023-11-21 01:16] LABS: BASO % 0.4 % (0.0-1.0); HEMATOCRIT 44.9 % (42.0-52.0); LYMPH # 0.5 10^3/uL (1.5-5.0); LYMPH % 10.7 % (24.0-44.0); MEAN CORPUSCULAR HEMOGLOBIN 33.3 pg (27.0-33.0); MEAN CORPUSCULAR HGB CONC 33.4 g/dl (32.0-36.5); MEAN CORPUSCULAR VOLUME 99.8 fl (80.0-96.0); MONO # 0.4 10^3/uL (0.0-0.8); MONO % 8.6 % (2.0-8.0); NEUTROPHILS # 3.8 10^3/uL (1.5-8.5); NEUTROPHILS % 80.1 % (36.0-66.0); PLATELET COUNT, AUTOMATED 147 10^3/uL (150-450); WHITE BLOOD COUNT 4.8 10^3/uL (4.0-10.0)
[2023-11-21 01:32] LABS: INR 1.19; PROTHROMBIN TIME 14.8 SECONDS (12.5-14.5)
[2023-11-21 01:39] LABS: CK-MB VALUE MASS < 1.0 NG/ML (<3.6); LIPASE 16 U/L (12-53)
[2023-11-21 01:40] LABS: AMYLASE 24 U/L (30-118)
[2023-11-21 01:41] LABS: ALKALINE PHOSPHATASE 178 U/L (46-116); ALT/SGPT 31 U/L (7.0-40); AST/SGOT 84 U/L (<34); BILIRUBIN,DIRECT 0.7 MG/DL (<0.4); BILIRUBIN,TOTAL 1.4 MG/DL (0.3-1.2); BLOOD UREA NITROGEN 7 MG/DL (9-23); CALCIUM LEVEL 8.5 MG/DL (8.3-10.6); CARBON DIOXIDE LEVEL 30 MMOL/L (20-31); CHLORIDE LEVEL 102 MMOL/L (98-107); CREATININE FOR GFR 0.52 MG/DL (0.70-1.30); GLOMERULAR FILTRATION RATE > 60.0 (>49); GLUCOSE, FASTING 104 MG/DL (74-106); POTASSIUM SERUM 3.9 MMOL/L (3.5-5.1); SODIUM LEVEL 139 MMOL/L (136-145)
[2023-11-21 01:43] LABS: CPK CREATINE PHOSPHOKINASE 76 U/L (46-171); MB/CK RELATIVE INDEX 1.31 (< OR =4)
[2023-11-21] MEDS ORDERED: MORPHINE 4 MG/ML 1ML VIAL IV ONE ×2 (01:55→03:55)
[2023-11-21] MEDS ORDERED: NS 1,000 ML IV ONE (01:55)
[2023-11-21] MEDS ORDERED: ONDANSETRON 4MG 2ML VIAL IV ONE (01:55)
[2023-11-21] MEDS: GASTROGRAFIN SOLUTION 30ML PO SCH ×2 (03:00→03:04)
[2023-11-21] MEDS ORDERED: ISOVUE-370 76% 100ML VIAL As Ordered ONE (03:51)
[2023-11-21] MEDS ORDERED: KETOROLAC 30 MG/ML 1ML VIAL IV ONE (03:55)
[2023-11-21] MEDS ORDERED: PIPERACILLIN/TAZOBACTAM SOD 3.375 GM in D5W MINI-BAG PLUS 50 ML IV ONE (08:20)
[2023-11-21] MEDS: NS 1,000 ML IV SCH ×3 (08:30→20:18)
[2023-11-21] MEDS ORDERED: MED REC IN PROGRESS XX SCH (08:55)
[2023-11-21] MEDS ORDERED: SCOPOLAMINE 1MG TRANSDERMAL PATCH TOP SCH (09:00)
[2023-11-21] MEDS: HYDROMORPHONE HCL 0.5 MG/ 0.5 ML SYRINGE IV PRN ×6 (09:09→23:30)
[2023-11-21] MEDS ORDERED: PROMETHAZINE 25MG/ML 1ML VIAL IV PRN (09:35)
[2023-11-21] MEDS ORDERED: MORPHINE 4 MG/ML 1ML VIAL IV PRN (09:45)
[2023-11-21] MEDS ORDERED: MORPHINE 2 MG/ML 1ML VIAL IV PRN (09:45)
[2023-11-21] MEDS ORDERED: DEXTROSE 50% 50ML SYRINGE IV PRN (10:05)
[2023-11-21] MEDS ORDERED: GLUCAGON INJ 1MG VIAL SC PRN (10:05)
[2023-11-21] MEDS ORDERED: GLUCOSE 4GM CHEW TABLET PO PRN (10:05)
[2023-11-21 10:15] VITALS: BP 136/75; TEMP 97.7; O2SAT 98
[2023-11-21] MEDS ORDERED: LORazepam 2 MG TAB PO PRN (10:15)
[2023-11-21 11:11] VITALS: BP 136/75
[2023-11-21] MEDS ORDERED: HYDROMORPHONE HCL 0.5 MG/ 0.5 ML SYRINGE IV PRN (11:20)
[2023-11-21] MEDS: MULTIVITAMINS/MINERALS THERAP 1 TAB PO SCH (12:05)
[2023-11-21] MEDS: THIAMINE 100 MG TAB PO SCH ×2 (12:06→20:16)
[2023-11-21] MEDS: FOLIC ACID 1MG TAB PO SCH (12:06)
[2023-11-21] MEDS: PANTOPRAZOLE 40MG VIAL IV SCH ×2 (12:06→23:21)
[2023-11-21] MEDS ORDERED: MULT-6 PO (12:50)
[2023-11-21] MEDS ORDERED: MM S100C PO (12:50)
[2023-11-21] MEDS ORDERED: OXYC10TA12 PO (12:50)
[2023-11-21] MEDS ORDERED: ONDA4TAB6 PO (12:50)
[2023-11-21] MEDS ORDERED: REGL10TA6 PO (12:50)
[2023-11-21] MEDS ORDERED: ONDA8TAB8 PO (12:50)
[2023-11-21] MEDS ORDERED: GABA-1171 PO (12:50)
[2023-11-21] MEDS ORDERED: POTA1TAB23 PO (12:50)
[2023-11-21] MEDS ORDERED: HOME MED LIST COMPLETE! XX SCH (13:00)
[2023-11-21 13:52] VITALS: BP 138/77; TEMP 97.9; O2SAT 93
[2023-11-21] MEDS: SUCRALFATE 1 GM TAB PO SCH ×2 (15:04→20:16)
[2023-11-21] MEDS: PIPERACILLIN/TAZOBACTAM SOD 3.375 GM in D5W MINI-BAG PLUS 50 ML IV SCH ×2 (15:05→20:15)
[2023-11-21] MEDS: allopurinoL 100 MG TAB PO SCH (15:05)
[2023-11-21] MEDS ORDERED: NALOXONE INJ 0.4MG/1ML VIAL IV PRN (15:20)
[2023-11-21] MEDS ORDERED: oxyCODONE 15MG CR TAB PO PRN (15:20)
[2023-11-21 16:47] VITALS: O2SAT 95
[2023-11-21] MEDS: oxyCODONE 15MG CR TAB PO PRN ×2 (16:47→20:32)
[2023-11-21] MEDS: ENOXAPARIN 40MG/0.4ML SYRINGE (J1650 PER 10MG) SC SCH (20:15)
[2023-11-21] MEDS: FAMOTIDINE 20 MG TAB PO SCH (20:16)
[2023-11-21] MEDS: GABAPENTIN 100 MG CAP PO SCH (20:16)
[2023-11-21 20:30] VITALS: BP 155/90; TEMP 98.4; O2SAT 95
[2023-11-21 21:58] VITALS: BP 155/90
[2023-11-22] VITALS (16 sets, daily range): BP systolic 113–174; BP diastolic 77–119; TEMP 97.5–99; O2SAT 92–98
[2023-11-22] MEDS: PIPERACILLIN/TAZOBACTAM SOD 3.375 GM in D5W MINI-BAG PLUS 50 ML IV SCH ×4 (01:52→20:03)
[2023-11-22] MEDS: oxyCODONE 15MG CR TAB PO PRN ×4 (01:53→20:05)
[2023-11-22 05:48] LABS: BASO % 0.6 % (0.0-1.0); EOS % 1.2 % (0.0-3.0); LYMPH # 0.7 10^3/uL (1.5-5.0); LYMPH % 20.5 % (24.0-44.0); MEAN CORPUSCULAR HEMOGLOBIN 33.3 pg (27.0-33.0); MEAN CORPUSCULAR HGB CONC 33.3 g/dl (32.0-36.5); MONO # 0.4 10^3/uL (0.0-0.8); NEUTROPHILS # 2.2 10^3/uL (1.5-8.5); NEUTROPHILS % 66.4 % (36.0-66.0); PLATELET COUNT, AUTOMATED 103 10^3/uL (150-450); WHITE BLOOD COUNT 3.3 10^3/uL (4.0-10.0)
[2023-11-22 06:19] LABS: ALBUMIN 2.3 G/DL (3.2-5.2); ALKALINE PHOSPHATASE 132 U/L (46-116); ALT/SGPT 23 U/L (7.0-40); AST/SGOT 50 U/L (<34); BILIRUBIN,TOTAL 1.2 MG/DL (0.3-1.2); BLOOD UREA NITROGEN 5 MG/DL (9-23); CALCIUM LEVEL 8.1 MG/DL (8.3-10.6); CARBON DIOXIDE LEVEL 30 MMOL/L (20-31); CHLORIDE LEVEL 104 MMOL/L (98-107); CREATININE FOR GFR 0.55 MG/DL (0.70-1.30); GLOMERULAR FILTRATION RATE > 60.0 (>49); GLUCOSE, FASTING 95 MG/DL (74-106); MAGNESIUM LEVEL 1.9 MG/DL (1.8-2.4); POTASSIUM SERUM 3.7 MMOL/L (3.5-5.1); SODIUM LEVEL 138 MMOL/L (136-145); TOTAL PROTEIN 5.7 G/DL (5.7-8.2)
[2023-11-22 07:39] LABS: BASO % 0.3 % (0.0-1.0); EOS % 0.6 % (0.0-3.0); HEMATOCRIT 38.5 % (42.0-52.0); HEMOGLOBIN 12.9 g/dl (13.5-17.5); LYMPH # 0.8 10^3/uL (1.5-5.0); LYMPH % 24.4 % (24.0-44.0); MEAN CORPUSCULAR HEMOGLOBIN 33.2 pg (27.0-33.0); MEAN CORPUSCULAR HGB CONC 33.5 g/dl (32.0-36.5); MEAN CORPUSCULAR VOLUME 99.2 fl (80.0-96.0); MONO # 0.3 10^3/uL (0.0-0.8); MONO % 9.8 % (2.0-8.0); NEUTROPHILS % 64.9 % (36.0-66.0); PLATELET COUNT, AUTOMATED 105 10^3/uL (150-450); RED BLOOD COUNT 3.88 10^6/uL (4.30-6.10); WHITE BLOOD COUNT 3.2 10^3/uL (4.0-10.0)
[2023-11-22] MEDS: GABAPENTIN 100 MG CAP PO SCH ×2 (08:08→20:05)
[2023-11-22] MEDS: allopurinoL 100 MG TAB PO SCH (08:08)
[2023-11-22] MEDS: THIAMINE 100 MG TAB PO SCH ×2 (08:08→20:05)
[2023-11-22] MEDS: MULTIVITAMINS/MINERALS THERAP 1 TAB PO SCH (08:08)
[2023-11-22] MEDS: FOLIC ACID 1MG TAB PO SCH (08:08)
[2023-11-22] MEDS: SUCRALFATE 1 GM TAB PO SCH ×3 (08:09→20:05)
[2023-11-22] MEDS ORDERED: LIDOCAINE 1% SDV 30ML VIAL As Ordered ONE (09:27)
[2023-11-22] MEDS ORDERED: MIDAZOLAM INJ 2MG/2ML VIAL As Ordered ONE ×2 (10:07→10:24)
[2023-11-22] MEDS ORDERED: METOCLOPRAMIDE INJ 10MG/2ML VIAL As Ordered ONE (10:24)
[2023-11-22] MEDS ORDERED: propofoL 200 MG/20 ML VIAL As Ordered ONE (10:24)
[2023-11-22] MEDS ORDERED: ROCURONIUM BROMIDE 50MG/5ML VIAL As Ordered ONE ×2 (10:24→10:40)
[2023-11-22] MEDS ORDERED: fentaNYL 250 MCG/5 ML INJECTION As Ordered ONE (10:24)
[2023-11-22] MEDS ORDERED: LIDOCAINE 2% 100MG/5ML SDV (FOR ANES.) As Ordered ONE (10:24)
[2023-11-22] MEDS ORDERED: INDOCYANINE GREEN 25MG VIAL (IC-GREEN) As Ordered ONE (10:24)
[2023-11-22] MEDS ORDERED: LIDOCAINE 2% INJ 100 MG/5 ML SYRINGE As Ordered ONE (10:24)
[2023-11-22] MEDS ORDERED: dexmedeTOMIDine (4MCG/ML)200MCG/50ML BTL (PRECEDEX) As Ordered ONE (10:24)
[2023-11-22] MEDS ORDERED: SUGAMMADEX SODIUM 500 MG/5 ML VIAL (BRIDION) As Ordered ONE (10:24)
[2023-11-22] MEDS ORDERED: ONDANSETRON 4MG 2ML VIAL As Ordered ONE (10:24)
[2023-11-22] MEDS ORDERED: HYDROmorphone HCL 2MG/ML 1ML VIAL As Ordered ONE (10:41)
[2023-11-22] MEDS ORDERED: ALBUTEROL SULFATE 2.5MG/0.5ML INH NEB SOLN INH PRN (11:50)
[2023-11-22] MEDS ORDERED: LR 1,000 ML IV SCH (11:50)
[2023-11-22] MEDS ORDERED: METOPROLOL 5 MG/5 ML VIAL IV PRN (11:50)
[2023-11-22] MEDS ORDERED: fentaNYL 100 MCG/2 ML INJECTION IV PRN (11:50)
[2023-11-22] MEDS ORDERED: MEPERIDINE 25 MG/ML 1ML VIAL IV PRN (11:50)
[2023-11-22] MEDS ORDERED: diphenhydrAMINE 50MG/ML VIAL IV PRN (11:50)
[2023-11-22] MEDS ORDERED: ONDANSETRON 4MG 2ML VIAL IV PRN (11:50)
[2023-11-22] MEDS ORDERED: MIDAZOLAM INJ 2MG/2ML VIAL IV PRN (11:50)
[2023-11-22] MEDS: PANTOPRAZOLE 40MG VIAL IV SCH (12:00)
[2023-11-22] MEDS: HYDROMORPHONE HCL 0.5 MG/ 0.5 ML SYRINGE IV PRN ×2 (12:09→12:28)
[2023-11-22] MEDS: NS 1,000 ML IV SCH (12:47)
[2023-11-22] MEDS ORDERED: HYDROmorphone HCL 2MG/ML 1ML VIAL IV PRN (15:20)
[2023-11-22] MEDS: HYDROmorphone HCL 2MG/ML 1ML VIAL IV PRN ×2 (15:34→22:18)
[2023-11-22] MEDS ORDERED: MOM 30ML SUSPENSION UDC PO PRN (16:05)
[2023-11-22] MEDS ORDERED: MIRALAX *UNIT DOSE* 17GM PACKET PO PRN (16:05)
[2023-11-22] MEDS: SENOKOT S TAB PO SCH (20:05)
[2023-11-22] MEDS: FAMOTIDINE 20 MG TAB PO SCH (20:05)
[2023-11-22] MEDS: ENOXAPARIN 40MG/0.4ML SYRINGE (J1650 PER 10MG) SC SCH (20:06)
[2023-11-22] MEDS ORDERED: ENOXAPARIN 40MG/0.4ML SYRINGE (J1650 PER 10MG) SC SCH (21:00)
[2023-11-23] VITALS (22 sets, daily range): BP systolic 107–170; BP diastolic 63–108; TEMP 97.2–99.8; O2SAT 77–99
[2023-11-23] MEDS: PANTOPRAZOLE 40MG VIAL IV SCH (01:30)
[2023-11-23] MEDS: PIPERACILLIN/TAZOBACTAM SOD 3.375 GM in D5W MINI-BAG PLUS 50 ML IV SCH ×2 (01:30→08:01)
[2023-11-23] MEDS: oxyCODONE 15MG CR TAB PO PRN ×3 (01:32→12:59)
[2023-11-23] MEDS: HYDROmorphone HCL 2MG/ML 1ML VIAL IV PRN (04:38)
[2023-11-23 06:53] LABS: BASO % 0.2 % (0.0-1.0); HEMATOCRIT 42.1 % (42.0-52.0); HEMOGLOBIN 14.6 g/dl (13.5-17.5); LYMPH % 17.3 % (24.0-44.0); MEAN CORPUSCULAR HGB CONC 34.7 g/dl (32.0-36.5); MEAN CORPUSCULAR VOLUME 97.9 fl (80.0-96.0); MONO # 0.6 10^3/uL (0.0-0.8); MONO % 9.7 % (2.0-8.0); NEUTROPHILS # 4.3 10^3/uL (1.5-8.5); NEUTROPHILS % 72.6 % (36.0-66.0); PLATELET COUNT, AUTOMATED 148 10^3/uL (150-450); WHITE BLOOD COUNT 5.9 10^3/uL (4.0-10.0)
[2023-11-23 07:24] LABS: ALBUMIN 2.4 G/DL (3.2-5.2); ALKALINE PHOSPHATASE 124 U/L (46-116); ALT/SGPT 27 U/L (7.0-40); AST/SGOT 61 U/L (<34); BILIRUBIN,TOTAL 0.9 MG/DL (0.3-1.2); BLOOD UREA NITROGEN < 5 MG/DL (9-23); CARBON DIOXIDE LEVEL 31 MMOL/L (20-31); CHLORIDE LEVEL 102 MMOL/L (98-107); CREATININE FOR GFR 0.56 MG/DL (0.70-1.30); GLOMERULAR FILTRATION RATE > 60.0 (>49); GLUCOSE, FASTING 92 MG/DL (74-106); MAGNESIUM LEVEL 1.7 MG/DL (1.8-2.4); POTASSIUM SERUM 3.2 MMOL/L (3.5-5.1); SODIUM LEVEL 137 MMOL/L (136-145); TOTAL PROTEIN 6.3 G/DL (5.7-8.2)
[2023-11-23] MEDS: SENOKOT S TAB PO SCH ×2 (08:01→20:17)
[2023-11-23] MEDS: OMEPRAZOLE 20MG CAP PO SCH (08:01)
[2023-11-23] MEDS: THIAMINE 100 MG TAB PO SCH (08:02)
[2023-11-23] MEDS: allopurinoL 100 MG TAB PO SCH (08:02)
[2023-11-23] MEDS: FOLIC ACID 1MG TAB PO SCH (08:02)
[2023-11-23] MEDS: GABAPENTIN 100 MG CAP PO SCH ×2 (08:02→20:17)
[2023-11-23] MEDS: MULTIVITAMINS/MINERALS THERAP 1 TAB PO SCH (08:02)
[2023-11-23] MEDS: SUCRALFATE 1 GM TAB PO SCH ×3 (08:02→20:17)
[2023-11-23] MEDS: FUROSEMIDE 20 MG TAB PO SCH (08:03)
[2023-11-23] MEDS ORDERED: POTASSIUM CHLORIDE 10MEQ SR TABLET PO STA (08:09)
[2023-11-23] MEDS ORDERED: FAMOTIDINE 20 MG TAB PO STA (08:09)
[2023-11-23] MEDS: MAG SULF 1GM/100ML (MAG RUN) 100 ML IV SCH ×2 (09:27→10:28)
[2023-11-23] MEDS: oxyCODONE 5MG TAB PO PRN ×2 (10:29→15:12)
[2023-11-23] MEDS: KCL 10MEQ/100ML SWI (KRUN) 100 ML IV SCH ×2 (11:30→12:58)
[2023-11-23] MEDS ORDERED: OXAZEPAM 15MG CAP PO SCH (14:00)
[2023-11-23] MEDS ORDERED: LORazepam 2 MG/ML 1ML VIAL IV STA ×3 (17:29→18:36)
[2023-11-23] MEDS ORDERED: OXAZEPAM 15MG CAP PO ONE (17:45)
[2023-11-23] MEDS ORDERED: dexmedeTOMidine 200 MCG in IV 1 EA IV SCH (18:35)
[2023-11-23] MEDS ORDERED: MIDAZOLAM 5MG/ML 1ML VIAL As Ordered ONE (18:39)
[2023-11-23] MEDS ORDERED: MIDAZOLAM INJ 2MG/2ML VIAL IV ONE (18:40)
[2023-11-23] MEDS ORDERED: LORazepam 2 MG/ML 1ML VIAL IV PRN (18:55)
[2023-11-23] MEDS ORDERED: LORazepam 2 MG TAB PO PRN (19:15)
[2023-11-23] MEDS: ENOXAPARIN 40MG/0.4ML SYRINGE (J1650 PER 10MG) SC SCH (20:12)
[2023-11-23] MEDS: FAMOTIDINE 20 MG TAB PO SCH (20:17)
[2023-11-23] MEDS: LORazepam 2 MG/ML 1ML VIAL IV PRN (22:45)
[2023-11-24] VITALS (25 sets, daily range): BP systolic 107–191; BP diastolic 57–98; TEMP 97.6–99; O2SAT 95–99
[2023-11-24] MEDS ORDERED: OXAZEPAM 15MG CAP PO SCH
[2023-11-24] MEDS ORDERED: MIDAZOLAM 5MG/ML 1ML VIAL IM STA (00:57)
[2023-11-24] MEDS ORDERED: MORPHINE 2 MG/ML 1ML VIAL IV ONE (01:20)
[2023-11-24] MEDS: dexmedeTOMidine 200 MCG in IV 1 EA IV SCH ×8 (01:32→19:15)
[2023-11-24] MEDS: MORPHINE 4 MG/ML 1ML VIAL IV PRN ×2 (03:11→07:45)
[2023-11-24] MEDS: NICOTINE 21MG/24HR 1 EA TRANSDERMAL TD SCH ×2 (03:32→09:48)
[2023-11-24] MEDS: LORazepam 2 MG/ML 1ML VIAL IV PRN ×7 (04:07→23:52)
[2023-11-24 06:56] LABS: BASO % 0.7 % (0.0-1.0); HEMOGLOBIN 14.6 g/dl (13.5-17.5); LYMPH # 1.2 10^3/uL (1.5-5.0); LYMPH % 27.4 % (24.0-44.0); MEAN CORPUSCULAR HEMOGLOBIN 33.4 pg (27.0-33.0); MEAN CORPUSCULAR VOLUME 98.4 fl (80.0-96.0); MONO # 0.5 10^3/uL (0.0-0.8); MONO % 12.6 % (2.0-8.0); NEUTROPHILS # 2.4 10^3/uL (1.5-8.5); NEUTROPHILS % 58.1 % (36.0-66.0); PLATELET COUNT, AUTOMATED 117 10^3/uL (150-450); RED BLOOD COUNT 4.37 10^6/uL (4.30-6.10); WHITE BLOOD COUNT 4.2 10^3/uL (4.0-10.0)
[2023-11-24 07:20] LABS: ALBUMIN 2.5 G/DL (3.2-5.2); ALKALINE PHOSPHATASE 116 U/L (46-116); ALT/SGPT 26 U/L (7.0-40); AST/SGOT 53 U/L (<34); BLOOD UREA NITROGEN 5 MG/DL (9-23); CALCIUM LEVEL 8.4 MG/DL (8.3-10.6); CARBON DIOXIDE LEVEL 29 MMOL/L (20-31); CHLORIDE LEVEL 109 MMOL/L (98-107); CREATININE FOR GFR 0.55 MG/DL (0.70-1.30); GLOMERULAR FILTRATION RATE > 60.0 (>49); GLUCOSE, FASTING 92 MG/DL (74-106); POTASSIUM SERUM 3.5 MMOL/L (3.5-5.1); SODIUM LEVEL 142 MMOL/L (136-145)
[2023-11-24] MEDS ORDERED: LORazepam 2 MG/ML 1ML VIAL IV PRN (07:50)
[2023-11-24] MEDS: SENOKOT S TAB PO SCH ×2 (09:00→20:09)
[2023-11-24] MEDS: allopurinoL 100 MG TAB PO SCH (09:00)
[2023-11-24] MEDS: GABAPENTIN 100 MG CAP PO SCH ×2 (09:00→20:09)
[2023-11-24] MEDS: OMEPRAZOLE 20MG CAP PO SCH (09:00)
[2023-11-24] MEDS: SUCRALFATE 1 GM TAB PO SCH ×3 (09:00→20:08)
[2023-11-24] MEDS: THIAMINE 200MG 2ML VIAL IV SCH (09:46)
[2023-11-24] MEDS ORDERED: FOLIC ACID 1 MG in NS 50 ML IV SCH (10:00)
[2023-11-24] MEDS: FAMOTIDINE 20 MG TAB PO SCH (20:09)
[2023-11-24] MEDS: ENOXAPARIN 40MG/0.4ML SYRINGE (J1650 PER 10MG) SC SCH (20:44)
[2023-11-25] VITALS (15 sets, daily range): BP systolic 115–143; BP diastolic 64–79; TEMP 97.2–98.4; O2SAT 97–99
[2023-11-25] MEDS: dexmedeTOMidine 200 MCG in IV 1 EA IV SCH ×2 (00:15→04:58)
[2023-11-25] MEDS: oxyCODONE 15MG CR TAB PO PRN ×4 (02:23→17:31)
[2023-11-25] MEDS: oxyCODONE 5MG TAB PO PRN ×3 (05:11→21:12)
[2023-11-25 08:33] LABS: BASO % 0.4 % (0.0-1.0); EOS % 0.4 % (0.0-3.0); HEMATOCRIT 47.1 % (42.0-52.0); HEMOGLOBIN 15.9 g/dl (13.5-17.5); LYMPH # 1.4 10^3/uL (1.5-5.0); LYMPH % 26.1 % (24.0-44.0); MEAN CORPUSCULAR HEMOGLOBIN 32.9 pg (27.0-33.0); MEAN CORPUSCULAR HGB CONC 33.8 g/dl (32.0-36.5); MEAN CORPUSCULAR VOLUME 97.5 fl (80.0-96.0); MONO # 0.4 10^3/uL (0.0-0.8); MONO % 7.5 % (2.0-8.0); NEUTROPHILS # 3.5 10^3/uL (1.5-8.5); NEUTROPHILS % 65.2 % (36.0-66.0); PLATELET COUNT, AUTOMATED 146 10^3/uL (150-450); RED BLOOD COUNT 4.83 10^6/uL (4.30-6.10); WHITE BLOOD COUNT 5.3 10^3/uL (4.0-10.0)
[2023-11-25] MEDS: FUROSEMIDE 20 MG TAB PO SCH (08:46)
[2023-11-25] MEDS: allopurinoL 100 MG TAB PO SCH (08:46)
[2023-11-25] MEDS: THIAMINE 200MG 2ML VIAL IV SCH (08:46)
[2023-11-25] MEDS: OMEPRAZOLE 20MG CAP PO SCH (08:46)
[2023-11-25] MEDS: SENOKOT S TAB PO SCH ×2 (08:46→20:56)
[2023-11-25] MEDS: GABAPENTIN 100 MG CAP PO SCH ×3 (08:46→20:56)
[2023-11-25] MEDS: SUCRALFATE 1 GM TAB PO SCH ×3 (08:46→20:56)
[2023-11-25] MEDS: MOM 30ML SUSPENSION UDC PO SCH ×2 (09:00→20:57)
[2023-11-25] MEDS: THIAMINE 100 MG TAB PO SCH (09:00)
[2023-11-25 09:10] LABS: ALBUMIN 2.6 G/DL (3.2-5.2); ALKALINE PHOSPHATASE 123 U/L (46-116); ALT/SGPT 26 U/L (7.0-40); AST/SGOT 56 U/L (<34); BILIRUBIN,TOTAL 0.8 MG/DL (0.3-1.2); BLOOD UREA NITROGEN 10 MG/DL (9-23); CALCIUM LEVEL 8.4 MG/DL (8.3-10.6); CARBON DIOXIDE LEVEL 22 MMOL/L (20-31); CHLORIDE LEVEL 105 MMOL/L (98-107); CREATININE FOR GFR 0.51 MG/DL (0.70-1.30); GLOMERULAR FILTRATION RATE > 60.0 (>49); GLUCOSE, FASTING 64 MG/DL (74-106); POTASSIUM SERUM 3.4 MMOL/L (3.5-5.1); SODIUM LEVEL 140 MMOL/L (136-145); TOTAL PROTEIN 6.6 G/DL (5.7-8.2)
[2023-11-25] MEDS: OXAZEPAM 15MG CAP PO SCH ×2 (12:55→17:15)
[2023-11-25] MEDS: FOLIC ACID 1MG TAB PO SCH (12:55)
[2023-11-25] MEDS: ONDANSETRON 4MG 2ML VIAL IV SCH ×2 (12:55→17:15)
[2023-11-25] MEDS: PANTOPRAZOLE 40MG VIAL IV SCH (20:55)
[2023-11-25] MEDS: ENOXAPARIN 40MG/0.4ML SYRINGE (J1650 PER 10MG) SC SCH (20:55)
[2023-11-25] MEDS: FAMOTIDINE 20 MG TAB PO SCH (20:56)
[2023-11-26] MEDS: OXAZEPAM 15MG CAP PO SCH ×2 (00:22→06:10)
[2023-11-26] MEDS: ONDANSETRON 4MG 2ML VIAL IV SCH ×3 (00:22→12:16)
[2023-11-26] MEDS: oxyCODONE 5MG TAB PO PRN (00:23)
[2023-11-26 03:56] VITALS: BP 128/74
[2023-11-26] MEDS: oxyCODONE 15MG CR TAB PO PRN ×2 (04:09→09:26)
[2023-11-26 05:21] VITALS: BP 136/79; TEMP 98.1; O2SAT 96
[2023-11-26 07:30] VITALS: BP 140/50; TEMP 97; O2SAT 96
[2023-11-26 07:44] LABS: BASO % 0.7 % (0.0-1.0); EOS # 0.1 10^3/uL (0.0-0.5); EOS % 1.5 % (0.0-3.0); LYMPH # 1.2 10^3/uL (1.5-5.0); LYMPH % 26.5 % (24.0-44.0); MEAN CORPUSCULAR HEMOGLOBIN 33.1 pg (27.0-33.0); MEAN CORPUSCULAR HGB CONC 34.1 g/dl (32.0-36.5); MEAN CORPUSCULAR VOLUME 97.1 fl (80.0-96.0); MONO # 0.4 10^3/uL (0.0-0.8); NEUTROPHILS # 2.8 10^3/uL (1.5-8.5); NEUTROPHILS % 62.1 % (36.0-66.0); PLATELET COUNT, AUTOMATED 167 10^3/uL (150-450); RED BLOOD COUNT 4.53 10^6/uL (4.30-6.10); WHITE BLOOD COUNT 4.6 10^3/uL (4.0-10.0)
[2023-11-26 08:33] LABS: ALBUMIN 2.6 G/DL (3.2-5.2); ALKALINE PHOSPHATASE 114 U/L (46-116); ALT/SGPT 25 U/L (7.0-40); AST/SGOT 35 U/L (<34); BILIRUBIN,TOTAL 0.6 MG/DL (0.3-1.2); BLOOD UREA NITROGEN 12 MG/DL (9-23); CALCIUM LEVEL 8.1 MG/DL (8.3-10.6); CARBON DIOXIDE LEVEL 28 MMOL/L (20-31); CHLORIDE LEVEL 104 MMOL/L (98-107); CREATININE FOR GFR 0.56 MG/DL (0.70-1.30); GLOMERULAR FILTRATION RATE > 60.0 (>49); GLUCOSE, FASTING 92 MG/DL (74-106); MAGNESIUM LEVEL 1.8 MG/DL (1.8-2.4); POTASSIUM SERUM 2.7 MMOL/L (3.5-5.1); SODIUM LEVEL 139 MMOL/L (136-145); TOTAL PROTEIN 6.1 G/DL (5.7-8.2)
[2023-11-26] MEDS: allopurinoL 100 MG TAB PO SCH (09:15)
[2023-11-26] MEDS: THIAMINE 100 MG TAB PO SCH (09:17)
[2023-11-26] MEDS: GABAPENTIN 100 MG CAP PO SCH (09:17)
[2023-11-26] MEDS: SENOKOT S TAB PO SCH (09:18)
[2023-11-26] MEDS: SUCRALFATE 1 GM TAB PO SCH (09:19)
[2023-11-26] MEDS: FOLIC ACID 1MG TAB PO SCH (09:19)
[2023-11-26] MEDS: MOM 30ML SUSPENSION UDC PO SCH (09:20)
[2023-11-26] MEDS: PANTOPRAZOLE 40MG VIAL IV SCH (09:25)
[2023-11-26] MEDS ORDERED: TRAZ-252 PO (11:13)
[2023-11-26] MEDS ORDERED: THIA100TA PO (11:13)
[2023-11-26] MEDS ORDERED: OXAZ15CA4 PO (11:13)
[2023-11-26] MEDS ORDERED: GABA-282 PO (11:13)
[2023-11-26] MEDS ORDERED: SENN-52 PO (11:13)
[2023-11-26] MEDS ORDERED: FOLI1TAB11 PO (11:13)
[2023-11-26] MEDS ORDERED: POTA1TAB23 PO (11:31)
[2023-11-26] MEDS ORDERED: POTASSIUM CHLORIDE 10MEQ SR TABLET PO ONE ×2 (11:45→14:00)
[2023-11-26 12:00] VITALS: BP 125/79; TEMP 98; O2SAT 95; O2SAT 96
[2023-11-26] MEDS ORDERED: OXAZEPAM 15MG CAP PO SCH (14:00)
== END 2023-11-26 16:28 | disposition home or self-care (01) | DRG 418 ==
LOC: M ED 00:19 → M ED INP 08:50 → INTOOBSV 08:50 → M MSPAV 10:17 → M ICU 11-23 18:16 → OBSVTOIN 11-23 19:03 → INTOOBSV 11-23 19:03 → M ICU 11-23 19:44 → M MSPAV 11-25 12:33
PROVIDERS: ADMIT Internal Medicine; ATTEND Internal Medicine Nephrology
PROC: 8E0W4CZ Robotic Assisted Procedure of Trunk Region, Percutaneous Endoscopic Approach (ICD-10-PCS; 2023-11-22)
PROC: 0FT44ZZ Resection of Gallbladder, Percutaneous Endoscopic Approach (ICD-10-PCS; principal; 2023-11-22 08:36)
DX: K80.00 Calculus of gallbladder with acute cholecystitis without obstruction (principal); F11.20 Opioid dependence, uncomplicated; F10.231 Alcohol dependence with withdrawal delirium; G90.522 Complex regional pain syndrome I of left lower limb; E78.5 Hyperlipidemia, unspecified; K76.0 Fatty (change of) liver, not elsewhere classified; K21.9 Gastro-esophageal reflux disease without esophagitis; M54.9 Dorsalgia, unspecified; I10 Essential (primary) hypertension; G47.33 Obstructive sleep apnea (adult) (pediatric); K70.31 Alcoholic cirrhosis of liver with ascites; I27.20 Pulmonary hypertension, unspecified; J45.909 Unspecified asthma, uncomplicated; G89.29 Other chronic pain; E83.119 Hemochromatosis, unspecified; K22.2 Esophageal obstruction; K59.09 Other constipation; M50.90 Cervical disc disorder, unspecified, unspecified cervical region; M10.9 Gout, unspecified; K44.9 Diaphragmatic hernia without obstruction or gangrene; K57.90 Diverticulosis of intestine, part unspecified, without perforation or abscess without bleeding; K64.8 Other hemorrhoids; Z79.899 Other long term (current) drug therapy; I87.2 Venous insufficiency (chronic) (peripheral)

== ENCOUNTER → 2023-12-01 | Outpatient (REF) | payer MEDICARE, OTHER ==
[~2023-12-01] MED LIST changes: +FOLI1TAB11 PO; +MM S100C PO; +MULT-6 PO; +ONDA8TAB8 PO; +OXAZ15CA4 PO; +POTA1TAB23 PO; +SENN-52 PO; +THIA100TA PO; +TRAZ-252 PO
[2023-12-01 14:53] LABS: HEMATOCRIT 46.4 % (42.0-52.0); HEMOGLOBIN 15.1 g/dl (13.5-17.5); MEAN CORPUSCULAR HEMOGLOBIN 32.8 pg (27.0-33.0); MEAN CORPUSCULAR HGB CONC 32.5 g/dl (32.0-36.5); MEAN CORPUSCULAR VOLUME 100.7 fl (80.0-96.0); PLATELET COUNT, AUTOMATED 284 10^3/uL (150-450); RED BLOOD COUNT 4.61 10^6/uL (4.30-6.10); WHITE BLOOD COUNT 4.6 10^3/uL (4.0-10.0)
[2023-12-01 14:56] LABS: ALBUMIN 3.2 G/DL (3.2-5.2); ALKALINE PHOSPHATASE 133 U/L (46-116); ALT/SGPT 43 U/L (7.0-40); AST/SGOT 51 U/L (<34); BILIRUBIN,TOTAL 0.6 MG/DL (0.3-1.2); BLOOD UREA NITROGEN 8 MG/DL (9-23); CALCIUM LEVEL 9.5 MG/DL (8.3-10.6); CARBON DIOXIDE LEVEL 33 MMOL/L (20-31); CHLORIDE LEVEL 101 MMOL/L (98-107); CREATININE FOR GFR 0.62 MG/DL (0.70-1.30); GLOMERULAR FILTRATION RATE > 60.0 (>49); GLUCOSE, FASTING 100 MG/DL (74-106); POTASSIUM SERUM 4.8 MMOL/L (3.5-5.1); SODIUM LEVEL 137 MMOL/L (136-145); TOTAL PROTEIN 7.1 G/DL (5.7-8.2)
== END ==
LOC: M SFHCADAM 10:02
PROVIDERS: ATTEND Family Medicine
DX: G90.529 Complex regional pain syndrome I of unspecified lower limb (principal); F10.180 Alcohol abuse with alcohol-induced anxiety disorder; K70.31 Alcoholic cirrhosis of liver with ascites; Z79.891 Long term (current) use of opiate analgesic; Z79.899 Other long term (current) drug therapy

== ENCOUNTER → 2024-05-12 | Outpatient (REF) | payer MEDICARE, BC ==
[~2024-05-12] MED LIST changes: +ONDA-282 PO; +ONDA-284 PO; -ONDA4TAB6 PO; -ONDA8TAB8 PO
[2024-05-12 18:03] LABS: HEMOGLOBIN 12.1 g/dl (13.5-17.5); MEAN CORPUSCULAR HEMOGLOBIN 29.1 pg (27.0-33.0); MEAN CORPUSCULAR HGB CONC 32.7 g/dl (32.0-36.5); MEAN CORPUSCULAR VOLUME 88.9 fl (80.0-96.0); PLATELET COUNT, AUTOMATED 124 10^3/uL (150-450); RED BLOOD COUNT 4.16 10^6/uL (4.30-6.10)
[2024-05-12 18:11] LABS: VITAMIN B12 LEVEL 298 PG/ML (211-911)
[2024-05-12 18:12] LABS: FOLATE 14.74 NG/ML (>5.4); URIC ACID 4.4 MG/DL (3.7-9.2)
[2024-05-12 18:13] LABS: C REACTIVE PROTEIN QUANTITATIV < 0.40 MG/DL (<1.0)
[2024-05-12 18:15] LABS: ALBUMIN 3.8 G/DL (3.2-5.2); ALKALINE PHOSPHATASE 59 U/L (46-116); ALT/SGPT 11 U/L (7.0-40); AST/SGOT 11 U/L (<34); BILIRUBIN,TOTAL 0.3 MG/DL (0.3-1.2); BLOOD UREA NITROGEN 17 MG/DL (9-23); CALCIUM LEVEL 9.3 MG/DL (8.3-10.6); CARBON DIOXIDE LEVEL 30 MMOL/L (20-31); CHLORIDE LEVEL 104 MMOL/L (98-107); CREATININE FOR GFR 0.83 MG/DL (0.70-1.30); GLOMERULAR FILTRATION RATE > 60.0 (>49); GLUCOSE, FASTING 102 MG/DL (74-106); POTASSIUM SERUM 4.9 MMOL/L (3.5-5.1); SODIUM LEVEL 140 MMOL/L (136-145)
[2024-05-16 14:52] LABS: CYCLIC CITRULLINATED PEPTIDE < 16 UNITS (<20)
[2024-05-16 16:12] LABS: ANA SCREEN, IFA NEGATIVE (NEGATIVE)
[2024-05-16 17:11] LABS: RHEUMATOID FACTOR QUANT 181.9 IU/ML (<14)
== END ==
LOC: M SFHCADAM 14:07
PROVIDERS: ATTEND Family Medicine
DX: K91.5 Postcholecystectomy syndrome (principal); M79.2 Neuralgia and neuritis, unspecified; M05.79 Rheumatoid arthritis with rheumatoid factor of multiple sites without organ or systems involvement; R76.8 Other specified abnormal immunological findings in serum; Z79.899 Other long term (current) drug therapy

== ENCOUNTER → 2024-06-09 | Outpatient (REF) | payer MEDICARE, BC | LOC: M LAB REF 12:41 | PROVIDERS: ATTEND Nurse Practitioner Family | DX: R15.9 Full incontinence of feces (principal); R19.7 Diarrhea, unspecified; R10.30 Lower abdominal pain, unspecified ==

== ENCOUNTER → 2024-07-18 | Outpatient (CLI) | payer MEDICARE, BC | LOC: M WHC 08:16 | PROVIDERS: ATTEND Nurse Practitioner Family | DX: K76.0 Fatty (change of) liver, not elsewhere classified (principal); Z90.49 Acquired absence of other specified parts of digestive tract; R16.2 Hepatomegaly with splenomegaly, not elsewhere classified; N28.1 Cyst of kidney, acquired; K70.30 Alcoholic cirrhosis of liver without ascites ==

== ENCOUNTER → 2024-07-18 | Outpatient (CLI) | payer MEDICARE, BC ==
[2024-07-18 13:59] LABS: ALBUMIN 4.1 G/DL (3.2-5.2); ALKALINE PHOSPHATASE 61 U/L (46-116); ALT/SGPT 12 U/L (7.0-40); AST/SGOT 13 U/L (<34); BILIRUBIN,DIRECT 0.2 MG/DL (<0.4); BILIRUBIN,TOTAL 0.5 MG/DL (0.3-1.2); TOTAL PROTEIN 7.7 G/DL (5.7-8.2)
[2024-07-19 10:43] LABS: ALPHA 1 ANTITRYPSIN 162 mg/dL (83-199)
== END ==
LOC: M PLALAB 09:38
PROVIDERS: ATTEND Nurse Practitioner Family
DX: K76.0 Fatty (change of) liver, not elsewhere classified (principal); K70.30 Alcoholic cirrhosis of liver without ascites

== ENCOUNTER 2024-08-25 07:38 | Day surgery (SDC) | payer MEDICARE, BC ==
[~2024-08-25] VITALS: Ht 167.6 cm; Wt 73.0 kg
[~2024-08-25 07:38] MED LIST changes: +BUSP15TA47 PO; +GABA-1172 PO; -GABA-282 PO; +LIDOCAINE 2% 100MG/5ML SDV (FOR ANES.) As Ordered ONE; +MELO15TA28 PO; +NEUR300C PO; +NS 250 ML IV ONE; +POTA10CA70 PO; +TRAZ-257 PO; +fentaNYL 100 MCG/2 ML INJECTION As Ordered ONE; +propofoL 200 MG/20 ML VIAL As Ordered ONE
[2024-08-25] MEDS ORDERED: MIDAZOLAM INJ 2MG/2ML VIAL As Ordered ONE (09:40)
[2024-08-25] MEDS ORDERED: GLYCOPYRROLATE INJ 0.2 MG/ML 2 ML VIAL As Ordered ONE (10:24)
[2024-08-25 11:10] VITALS: BP 128/69; O2SAT 100
== END 2024-08-25 11:24 | disposition home or self-care (01) ==
LOC: M OPP 07:38
PROVIDERS: ATTEND Internal Medicine Gastroenterology
DX: K63.5 Polyp of colon (principal); K29.50 Unspecified chronic gastritis without bleeding; K57.30 Diverticulosis of large intestine without perforation or abscess without bleeding; Z86.0100 Personal history of colon polyps, unspecified; K64.8 Other hemorrhoids; Z13.810 Encounter for screening for upper gastrointestinal disorder; K21.9 Gastro-esophageal reflux disease without esophagitis; M19.90 Unspecified osteoarthritis, unspecified site; F41.9 Anxiety disorder, unspecified; Z79.899 Other long term (current) drug therapy; Z80.0 Family history of malignant neoplasm of digestive organs
CPT/HCPCS: 43239; 43251; 45385; 88305; J1596; J2250; J3010

== ENCOUNTER → 2024-11-11 | Outpatient (CLI) | payer MEDICARE, BC ==
[~2024-11-11] MED LIST changes: -LIDOCAINE 2% 100MG/5ML SDV (FOR ANES.) As Ordered ONE; -NS 250 ML IV ONE; -fentaNYL 100 MCG/2 ML INJECTION As Ordered ONE; -propofoL 200 MG/20 ML VIAL As Ordered ONE
[2024-11-11 18:19] LABS: BASO % 0.3 % (0.0-1.0); EOS # 0.1 10^3/uL (0.0-0.5); EOS % 3.4 % (0.0-3.0); HEMATOCRIT 38.5 % (42.0-52.0); HEMOGLOBIN 13.1 g/dl (13.5-17.5); LYMPH # 1.1 10^3/uL (1.5-5.0); LYMPH % 30.7 % (24.0-44.0); MEAN CORPUSCULAR HEMOGLOBIN 30.3 pg (27.0-33.0); MEAN CORPUSCULAR VOLUME 89.1 fl (80.0-96.0); MONO # 0.2 10^3/uL (0.0-0.8); MONO % 4.9 % (2.0-8.0); NEUTROPHILS # 2.1 10^3/uL (1.5-8.5); NEUTROPHILS % 60.4 % (36.0-66.0); PLATELET COUNT, AUTOMATED 116 10^3/uL (150-450); RED BLOOD COUNT 4.32 10^6/uL (4.30-6.10); WHITE BLOOD COUNT 3.5 10^3/uL (4.0-10.0)
[2024-11-11 18:25] LABS: ERYTHROCYTE SEDIMENTATION RATE 12 mm/hr (0-20)
[2024-11-11 18:47] LABS: ALBUMIN 4.1 G/DL (3.2-5.2); ALKALINE PHOSPHATASE 67 U/L (40-129); ALT/SGPT 15 U/L (7.0-40); AST/SGOT 16 U/L (<34); BILIRUBIN,TOTAL 0.5 MG/DL (0.3-1.2); BLOOD UREA NITROGEN 18 MG/DL (9-23); C REACTIVE PROTEIN QUANTITATIV < 0.50 MG/DL (<1.0); CARBON DIOXIDE LEVEL 30 MMOL/L (20-31); CHLORIDE LEVEL 103 MMOL/L (98-107); CREATININE FOR GFR 0.74 MG/DL (0.70-1.30); GLOMERULAR FILTRATION RATE > 60.0 (>49); GLUCOSE, FASTING 104 MG/DL (74-106); SODIUM LEVEL 142 MMOL/L (136-145); TOTAL PROTEIN 7.5 G/DL (5.7-8.2)
[2024-11-11 18:49] LABS: IMMUNOGLOBULIN A 281.9 MG/DL (40-350); IMMUNOGLOBULIN G 1346 MG/DL (650-1600); IMMUNOGLOBULIN M 134.6 MG/DL (50-300)
[2024-11-11 19:00] LABS: HEPATITIS B SURFACE ANTIGEN NEGATIVE (NEGATIVE)
[2024-11-11 19:21] LABS: HEPATITIS C VIRUS ABY INDEX < 0.02 INDEX (<0.8)
[2024-11-14 22:17] LABS: PROTEIN, TOTAL SO 7.3 g/dL (6.1-8.1)
[2024-11-15 12:02] LABS: HEPATITIS B CORE ANTIBODY IGG NON-REACTIVE (NON-REACTIVE)
[2024-11-16 07:18] LABS: ALBUMIN SO 4.4 g/dL (3.8-4.8); ALPHA 1 GLOBULINS SO 0.2 g/dL (0.2-0.3); ALPHA 2 GLOBULINS SO 0.6 g/dL (0.5-0.9); BETA 2 GLOBULIN SO 0.4 g/dL (0.2-0.5); BETA GLOBULIN SO 0.5 g/dL (0.4-0.6); GAMMA GLOBULINS SO 1.2 g/dL (0.8-1.7)
== END ==
LOC: M RAD 15:47
PROVIDERS: ATTEND Internal Medicine Rheumatology
DX: R76.8 Other specified abnormal immunological findings in serum (principal); I73.00 Raynaud's syndrome without gangrene; R68.2 Dry mouth, unspecified; M46.1 Sacroiliitis, not elsewhere classified; M19.041 Primary osteoarthritis, right hand; M19.042 Primary osteoarthritis, left hand; M19.071 Primary osteoarthritis, right ankle and foot; M19.072 Primary osteoarthritis, left ankle and foot; Z11.59 Encounter for screening for other viral diseases

== ENCOUNTER → 2025-01-30 | Outpatient (REF) | payer MEDICARE, BC ==
[2025-01-30 18:20] LABS: BASO % 0.5 % (0.0-1.0); EOS # 0.1 10^3/uL (0.0-0.5); EOS % 2.7 % (0.0-3.0); HEMATOCRIT 44.8 % (42.0-52.0); HEMOGLOBIN 14.8 g/dl (13.5-17.5); LYMPH # 1.3 10^3/uL (1.5-5.0); LYMPH % 31.1 % (24.0-44.0); MEAN CORPUSCULAR HEMOGLOBIN 30.8 pg (27.0-33.0); MEAN CORPUSCULAR VOLUME 93.3 fl (80.0-96.0); MONO # 0.3 10^3/uL (0.0-0.8); NEUTROPHILS # 2.4 10^3/uL (1.5-8.5); NEUTROPHILS % 57.2 % (36.0-66.0); PLATELET COUNT, AUTOMATED 143 10^3/uL (150-450); WHITE BLOOD COUNT 4.1 10^3/uL (4.0-10.0)
[2025-01-30 18:23] LABS: C REACTIVE PROTEIN QUANTITATIV < 0.50 MG/DL (<1.0)
[2025-01-30 18:24] LABS: ALKALINE PHOSPHATASE 99 U/L (40-129); ALT/SGPT 12 U/L (7.0-40); AST/SGOT 14 U/L (<34); BILIRUBIN,TOTAL 0.5 MG/DL (0.3-1.2); BLOOD UREA NITROGEN 14 MG/DL (9-23); CALCIUM LEVEL 9.7 MG/DL (8.3-10.6); CARBON DIOXIDE LEVEL 32 MMOL/L (20-31); CHLORIDE LEVEL 101 MMOL/L (98-107); ERYTHROCYTE SEDIMENTATION RATE 11 mm/hr (0-20); GLOMERULAR FILTRATION RATE > 60.0 (>49); GLUCOSE, FASTING 112 MG/DL (74-106); POTASSIUM SERUM 4.6 MMOL/L (3.5-5.1); SODIUM LEVEL 140 MMOL/L (136-145); TOTAL PROTEIN 7.6 G/DL (5.7-8.2)
== END ==
LOC: M SFHCADAM 13:45
PROVIDERS: ATTEND Internal Medicine Rheumatology
DX: M25.50 Pain in unspecified joint (principal); R76.8 Other specified abnormal immunological findings in serum; I73.00 Raynaud's syndrome without gangrene; R68.2 Dry mouth, unspecified

== ENCOUNTER → 2025-02-16 | Outpatient (CLI) | payer MEDICARE, BC | LOC: M PLAIMG 12:30 | PROVIDERS: ATTEND Internal Medicine Rheumatology | DX: M16.0 Bilateral primary osteoarthritis of hip (principal); M87.052 Idiopathic aseptic necrosis of left femur; M25.452 Effusion, left hip; M46.1 Sacroiliitis, not elsewhere classified; M47.817 Spondylosis without myelopathy or radiculopathy, lumbosacral region; M51.27 Other intervertebral disc displacement, lumbosacral region ==

== ENCOUNTER → 2025-03-03 | Outpatient (CLI) | payer MEDICARE, BC ==
[2025-03-06 14:33] LABS: PSA % FREE 12 % (calc) (>25); PSA FREE 0.3 ng/mL; PSA TOTAL 2.5 ng/mL (< OR = 4.0)
[2025-03-06 14:47] LABS: FREE KAPPA LIGHT CHAINS SERUM 40.6 mg/L (3.3-19.4); FREE LAMBDA LIGHT CHAINS SERUM 26.4 mg/L (5.7-26.3); KAPPA/LAMBDA RATIO SERUM 1.54 (0.26-1.65)
== END ==
LOC: M WUC 13:01
PROVIDERS: ATTEND Family Medicine
DX: N40.2 Nodular prostate without lower urinary tract symptoms (principal); I73.00 Raynaud's syndrome without gangrene; M25.50 Pain in unspecified joint; R93.7 Abnormal findings on diagnostic imaging of other parts of musculoskeletal system; R76.8 Other specified abnormal immunological findings in serum; R68.2 Dry mouth, unspecified

== ENCOUNTER → 2025-06-06 | Outpatient (CLI) | payer MEDICARE, BC ==
[2025-06-06 18:25] LABS: PLATELET COUNT, AUTOMATED 149 10^3/uL (150-450)
[2025-06-06 18:42] LABS: FREE T4 0.95 NG/DL (0.89-1.76)
[2025-06-06 18:43] LABS: ALT/SGPT 15 U/L (7.0-40); AST/SGOT 25 U/L (<34); C REACTIVE PROTEIN QUANTITATIV < 0.50 MG/DL (<1.0); CALCIUM LEVEL 9.1 MG/DL (8.3-10.6); CARBON DIOXIDE LEVEL 30 MMOL/L (20-31); CHLORIDE LEVEL 99 MMOL/L (98-107); CPK CREATINE PHOSPHOKINASE 152 U/L (46-171); CREATININE FOR GFR 0.73 MG/DL (0.70-1.30); GLOMERULAR FILTRATION RATE > 90.0 (>49); MAGNESIUM LEVEL 2.1 MG/DL (1.8-2.4); POTASSIUM SERUM 4.3 MMOL/L (3.5-5.1); SODIUM LEVEL 141 MMOL/L (136-145)
[2025-06-06 19:06] LABS: ESTIMATED AVERAGE GLUCOSE 88.0 MG/DL (60-110)
== END ==
LOC: M PLALAB 16:30
PROVIDERS: ATTEND Family Medicine
DX: R68.89 Other general symptoms and signs (principal); M79.10 Myalgia, unspecified site; R53.1 Weakness; M1A.0710 Idiopathic chronic gout, right ankle and foot, without tophus (tophi); E83.42 Hypomagnesemia; Z79.899 Other long term (current) drug therapy

== ENCOUNTER → 2025-07-13 | Outpatient (CLI) | payer MEDICARE, BC | LOC: M RAD 08:37 | PROVIDERS: ATTEND Internal Medicine Gastroenterology | DX: K74.60 Unspecified cirrhosis of liver (principal); R16.2 Hepatomegaly with splenomegaly, not elsewhere classified ==

== ENCOUNTER → 2025-08-07 | Outpatient (REF) | payer MEDICARE, BC ==
[2025-08-07 10:45] LABS: APPEARANCE, URINE CLEAR (CLEAR); BACTERIA, URINE AUTO NEGATIVE (NEGATIVE); BILIRUBIN, URINE AUTO NEGATIVE (NEGATIVE); BLOOD, URINE BLOOD NEGATIVE (NEGATIVE); GLUCOSE, URINE (UA) AUTO NEGATIVE (NEGATIVE); KETONE, URINE AUTO NEGATIVE (NEGATIVE); LEUKOCYTE ESTERASE, URINE AUTO NEGATIVE (NEGATIVE); NITRITE, URINE AUTO NEGATIVE (NEGATIVE); PROTEIN, URINE AUTO NEGATIVE (NEGATIVE); RBC, URINE AUTO 0 /HPF (0-3); SPECIFIC GRAVITY URINE AUTO 1.004 (1.002-1.035); SQUAMOUS EPITHELIAL CELL UR AU 0 /HPF (0-6); UROBILINOGEN, URINE AUTO 0.2 mg/dL (0.0-2.0); WBC, URINE AUTO 0 /HPF (0-3)
== END ==
LOC: M SMT 10:13
PROVIDERS: ATTEND Nurse Practitioner Family
DX: N50.812 Left testicular pain (principal)

== ENCOUNTER → 2025-08-22 | Outpatient (CLI) | payer MEDICARE, BC | LOC: M RAD 11:29 | PROVIDERS: ATTEND Nurse Practitioner Family | DX: N50.812 Left testicular pain (principal) ==

== ENCOUNTER → 2025-09-11 | Outpatient (CLI) | payer MEDICARE, BC ==
[2025-09-11 16:23] LABS: PLATELET COUNT, AUTOMATED 109 10^3/uL (150-450)
[2025-09-11 16:26] LABS: ALT/SGPT 19 U/L (7.0-40); AST/SGOT 33 U/L (<34); CALCIUM LEVEL 9.0 MG/DL (8.3-10.6); CARBON DIOXIDE LEVEL 32 MMOL/L (20-31); CHLORIDE LEVEL 102 MMOL/L (98-107); CREATININE FOR GFR 0.77 MG/DL (0.70-1.30); GLOMERULAR FILTRATION RATE > 90.0 (>49); MAGNESIUM LEVEL 1.7 MG/DL (1.8-2.4); POTASSIUM SERUM 4.3 MMOL/L (3.5-5.1); SODIUM LEVEL 143 MMOL/L (136-145)
[2025-09-11 16:55] LABS: ESTIMATED AVERAGE GLUCOSE 94.0 MG/DL (60-110)
== END ==
LOC: M PLALAB 13:18
DX: Z01.818 Encounter for other preprocedural examination (principal); E83.42 Hypomagnesemia; Z79.899 Other long term (current) drug therapy

== ENCOUNTER → 2025-09-12 | Outpatient (CLI) | payer MEDICARE, BC | LOC: M PLALAB 16:11 | PROVIDERS: ATTEND Nurse Practitioner Family | DX: N40.2 Nodular prostate without lower urinary tract symptoms (principal) ==